=== PATIENT | male | born 1960 | race African-American/Black ===

== ENCOUNTER → 2017-01-16 | Emergency (ER) | payer SELFPAY ==
[~2017-01-16] VITALS: Ht 188 cm; Wt 122.5 kg
[~2017-01-16] MED LIST: ALTEPLASE 100 MG/VIAL (ACTIVASE) IV ONE; DILTIAZEM 25 MG/5 ML INJ (CARDIZEM) VIAL IVP ONE; DILTIAZEM DRIP 100 MG in SODIUM CHLORIDE (ADD-VANTAGE) 100 ML IV SCH; LABETALOL HCL 20 MG/4 ML VIAL ONE
[2017-01-16 17:43] LABS: BASOPHILS % (AUTO) 0 % (0-10); EOSINOPHILS % (AUTO) 0 % (0-10); LYMPHOCYTES # (AUTO) 4.8 X 10^3 (1.0-4.0); LYMPHOCYTES % (AUTO) 63 % (12-44); MEAN CORPUSCULAR HEMOGLOBIN 24 PG (25-34); MEAN CORPUSCULAR HGB CONC 33 G/DL (32-36); MEAN CORPUSCULAR VOLUME 72 FL (80-99); MEAN PLATELET VOLUME 10.8 FL (7.4-10.4); MONOCYTES % (AUTO) 13 % (0-12); NEUTROPHILS # (AUTO) 1.8 X 10^3 (1.8-7.8); NEUTROPHILS % (AUTO) 24 % (42-75); PLATELET COUNT 296 10^3/uL (130-400); RED BLOOD COUNT 5.35 10^6/uL (4.35-5.85); RED CELL DISTRIBUTION WIDTH 16.5 % (10.0-14.5); WHITE BLOOD COUNT 7.7 10^3/uL (4.3-11.0)
--- NOTE | 2017-01-16 17:45 | ED Neurological Problem ---
General Stated Complaint: STROKE LIKE SYMPTOMS Source: patient Exam Limitations: no limitations (JACOBO SONI APRN) History of Present Illness Time seen by provider: 17:44 Initial Comments To ER with strokelike symptoms that began at 515 p.m. ifrah. Girlfriend of 8 years states that they just entered the house and ate dinner. He had been complaining of tingling to the right arm and hand for a few minutes. He went to the bedroom and then she went to check on him only minutes later and he was unable to speak, dropped his cigarettes on the floor and could not pick them up , seemed to have no function of the right arm and was drooling. She states that he is a diabetic but does not take any medications as directed. Primary care is [facility] here in [place]. He does smoke 1-2 packs of cigarettes per day in addition to marijuana. He recently lost his job a [email or web address]. Timing/Duration: 1/2 hour (JACOBO SONI APRN) Associated Symptoms: confusion, slurred speech, weakness (MUNA WRIGHT MD ) Allergies and Home Medications Allergies Coded Allergies: No Known Drug Allergies (Unverified , 01/16/17) Home Medications No Active Prescriptions or Reported Meds Constitutional: see HPI Eyes: No Symptoms Reported Ears, Nose, Mouth, Throat: no symptoms reported Respiratory: no symptoms reported Cardiovascular: no symptoms reported Genitourinary: no symptoms reported Musculoskeletal: see HPI Skin: no symptoms reported Psychiatric/Neurological: See HPI, Unable to Move Upper Ext Endocrine: No Symptoms Reported (JACOBO SONI APRN) Gastrointestinal: No nausea, No vomiting (MUNA WRIGHT MD) All Other Systems Reviewed Negative Unless Noted: Yes (MUNA WRIGHT MD) Past Brtlivd-Svcizj-Qbyhqw Hx Patient Social History Recent Foreign Travel: No Contact w/Someone Who Travel: No (JACOBO SONI APRN) Cardiovascular Hx Cardiac Disorders: Yes Cardiac Disorders: Hypertension (MUNA WRIGHT MD) Endocrine Hx Endocrine Disorders: Yes Endocrine Disorders: Diabetes, Non-Insulin dep (MUNA WRIGHT MD) Physical Exam Vital Signs Vital Sign - Last 12Hours 01/16/17 17:53 Pulse 178 (MUNA WRIGHT MD) Vital Signs Capillary Refill : (SONI,PETER J [employer]) General Appearance: WD/WN, no apparent distress HEENT: PERRL/EOMI, pharynx normal Neck: full range of motion, supple Respiratory: lungs clear, normal breath sounds Cardiovascular: tachycardia, irregularly irregular Peripheral Pulses: 2+ Dorsalis Pedis (R), 2+ Left Dors-Pedis (L), 2+ Radial Pulses (R), 2+ Radial Pulses (L) Gastrointestinal: non tender, soft Extremities: non-tender, other Neurologic/Psychiatric: facial droop (right), motor weakness Crainal Nerves: facial asymmetry, facial droop, other (aphasic) Coordination/Gait: other Motor/Sensory: weak motor strength RUE, weak motor strength RLE Skin: normal color, warm/dry (MUNA WRIGHT MD) Progress/Results/Core Measures Results/Orders Lab Results Laboratory Tests Test 01/16/17 17:37 01/16/17 18:18 Range/Units White Blood Count 7.7 4.3-11.0 10^3/uL Red Blood Count 5.35 4.35-5.85 10^6/uL Hemoglobin 12.6 L 13.3-17.7 G/DL Hematocrit 39 L 40-54 % Mean Corpuscular Volume 72 L 80-99 FL Mean Corpuscular Hemoglobin 24 L 25-34 PG Mean Corpuscular Hemoglobin Concent 33 32-36 G/DL Red Cell Distribution Width 16.5 H 10.0-14.5 % Platelet Count 296 130-400 10^3/uL Mean Platelet Volume 10.8 H 7.4-10.4 FL Neutrophils (%) (Auto) 24 L 42-75 % Lymphocytes (%) (Auto) 63 H 12-44 % Monocytes (%) (Auto) 13 H 0-12 % Eosinophils (%) (Auto) 0 0-10 % Basophils (%) (Auto) 0 0-10 % Neutrophils # (Auto) 1.8 1.8-7.8 X 10^3 Lymphocytes # (Auto) 4.8 H 1.0-4.0 X 10^3 Monocytes # (Auto) 1.0 0.0-1.0 X 10^3 Eosinophils # (Auto) 0.0 0.0-0.3 10^3/uL Basophils # (Auto) 0.0 0.0-0.1 10^3/uL Prothrombin Time 14.4 12.2-14.7 SEC INR Comment 1.2 0.8-1.4 Activated Partial Thromboplast Time 29 24-35 SEC D-Dimer 0.85 H 0.00-0.49 UG/ML Sodium Level 136 135-145 MMOL/L Potassium Level 4.4 3.6-5.0 MMOL/L Chloride Level 103 98-107 MMOL/L Carbon Dioxide Level 22 21-32 MMOL/L Anion Gap 11 5-14 MMOL/L Blood Urea Nitrogen 15 7-18 MG/DL Creatinine 1.28 0.60-1.30 MG/DL Estimat Glomerular Filtration Rate > 60 BUN/Creatinine Ratio 12 Glucose Level 291 H 70-105 MG/DL Glucometer 313 H 70-110 MG/DL Calcium Level 9.6 8.5-10.1 MG/DL Total Bilirubin 0.8 0.1-1.0 MG/DL Aspartate Amino Transf (AST/SGOT) 26 5-34 U/L Alanine Aminotransferase (ALT/SGPT) 37 0-55 U/L Alkaline Phosphatase 109 40-136 U/L Troponin I < 0.30 <0.30 NG/ML Total Protein 9.0 H 6.4-8.2 G/DL Albumin 3.9 3.2-4.5 G/DL (MUNA WRIGHT MD) Medications Given in ED Current Medications Medications Dose Ordered Sig/Ulices Route Start Time Stop Time Status Last Admin Dose Admin Alteplase, Recombinant 100 mg STK-MED ONCE IV 01/16/17 17:57 01/16/17 18:02 DC 01/16/17 18:07 100 MG Diltiazem HCl 10 mg ONCE ONCE IVP 01/16/17 17:45 01/16/17 17:46 DC 01/16/17 17:52 10 MG Labetalol HCl 20 mg STK-MED ONCE .ROUTE 01/16/17 18:08 01/16/17 18:13 DC 01/16/17 18:27 20 MG (MUNA WRIGHT MD) Vital Signs/I&O Vital Sign - Last 12Hours 01/16/17 17:53 Pulse 178 (MUNA WRIGHT MD) Progress Note : Progress Note [id number]- is discussed the case with Dr. Friedman, neurologist at who accepts the patient for transfer and does recommend TPA. We started Cardizem after 10 mg bolus and 10 mg an hour which reduced the heart rate from 170s to 110 and blood pressure from 125/110 to 150s over 100. Neurologic deficits remaining at this time with NIH greater than or equal to 16. Still nonverbal. [facility] [place] [facility] has declined transfer due to weather. [facility] in route for emergent transfer. (JACOBO SONI APRN) Progress Note : Progress Note I had seen and evaluated the patient with Jacobo Soni APRN. Patient has stroke scale greater than 16 but limited due to patient not able to speak. He follow some simple commands but not all which increases his stroke scale as well. Right arm definitely flaccid. Weakness of the right lower extremity but retained strength on right. He appears to nod in understanding to some questions. Patient's blood pressure just above the level required for TPA. Cardizem drip initiated after bolus for A. fib with rapid ventricular response. TPA is indicated. I did discuss the risk and benefits with the common-law who agrees with administration of TPA. Patient is at max dose due to weight. Receives 9 mg bolus and 81 mg over one hour initiated. Patient's blood pressure in the diastolic range near upper level of range for TPA administration. 1830. Blood pressure 134/97 after 20 mg of labetalol. Cardizem drip at 20 mg per hour. He she will go emergent by ground EMS as stated above. All findings, concerns and treatment discussed with family. Patient has 3 IV lines and Mcclelland catheter placed prior to TPA administration. 1850: EMS here switching over for transport currently. Patient's stroke scale now 10. He has improvement with movement of his right arm and right leg. To [facility] emergently. Cardizem drip decreased to 10 mg per hour as blood pressure now one teens over 90s with heart rate 80s to 90s. (MUNA WRIGHT MD) ECG Initial ECG Impression Date: January 16, 2017 Initial ECG Impression Time: 17:51 Initial ECG Rate: 167 Initial ECG Rhythm: A Fib/Flutter Comment Atrial fibrillation with rapid ventricular response. No evidence of ST elevation OR. Normal axis. No previous available for comparison. Interpreted by me. (MUNA WRIGHT MD) Diagnostic Imaging Diagonstic Imaging: CT Plain Films/CT/US/NM/MRI: head Comments VIA [facility]. [place], [place] NAME: MELODY LAMB [facility] REC#: [id number] PT STATUS: REG ER : 10/09/1980 PHYSICIAN: JACOBO SONI APRN ADMIT DATE: 01/16/17/ER Draft Date of Exam:01/16/17 CT HEAD WO-R/O STROKE INDICATION: Right-sided weakness, nonverbal. New onset. TECHNIQUE: Routine head CT was performed without contrast. COMPARISON: None. DISCUSSION: No acute intracranial hemorrhage, mass, midline shift, or hydrocephalus. Arachnoid cyst versus alondra cisterna magna noted incidentally within the posterior fossa. The ventricles and sulci are otherwise normal in size and configuration for age. The visualized orbits, paranasal sinuses, mastoid air cells, and calvarium are unremarkable. IMPRESSION: 1. No acute intracranial abnormality identified. Dictated on workstation # [id number] Dict: 01/16/17 175 Trans: 01/16/171756 AS6 [id number] Interpreted by: ROSY SHERMAN MD Electronically signed by: Date of in error above and is actually 56. Diagonstic Imaging: Xray Plain Films/CT/US/NM/MRI: chest Comments Bilateral pulmonary congestion and/or infiltrate at the bases Reviewed: Reviewed by Me (MUNA WRIGHT MD) Departure Impression Impression: Primary Impression: Cerebrovascular accident due to cerebral artery occlusion Disposition: XFER SHT-TRM HOSP Condition: Critical Transfer Transfer Time: 17:50 Transfer Facility: [place], [place], Dr. Friedman accepting Method of Transfer: EMS (MUNA WRIGHT MD) Departure-Patient Inst. Referrals: [facility] (PCP/Family) Primary Care Physician Scripts No Active Prescriptions or Reported Meds JACOBO SONI APRN January 16, 2017 17:45 MUNA WRIGHT MD January 16, 2017 18:33
--- NOTE | 2017-01-16 17:57 | Diagnostic Imaging Report ---
INDICATION: Right-sided weakness, nonverbal. New onset. TECHNIQUE: Routine head CT was performed without contrast. COMPARISON: None. DISCUSSION: No acute intracranial hemorrhage, mass, midline shift, or hydrocephalus. Arachnoid cyst versus alondra cisterna magna noted incidentally within the posterior fossa. The ventricles and sulci are otherwise normal in size and configuration for age. The visualized orbits, paranasal sinuses, mastoid air cells, and calvarium are unremarkable. IMPRESSION: 1. No acute intracranial abnormality identified. Dictated by: Dictated on workstation # [id number]
[2017-01-16 18:09] LABS: INR 1.2 (0.8-1.4); PROTHROMBIN TIME PATIENT 14.4 SEC (12.2-14.7)
[2017-01-16 18:17] LABS: ALANINE AMINOTRANSFERASE 37 U/L (0-55); ALBUMIN 3.9 G/DL (3.2-4.5); ANION GAP 11 MMOL/L (5-14); ASPARTATE AMINO TRANSFERASE 26 U/L (5-34); BILIRUBIN,TOTAL 0.8 MG/DL (0.1-1.0); BLOOD UREA NITROGEN 15 MG/DL (7-18); BUN/CREATININE RATIO 12; CALCIUM 9.6 MG/DL (8.5-10.1); CARBON DIOXIDE 22 MMOL/L (21-32); CHLORIDE 103 MMOL/L (98-107); CREATININE SERUM 1.28 MG/DL (0.60-1.30); GFR ESTIMATED > 60; GLUCOSE 291 MG/DL (70-105); POTASSIUM 4.4 MMOL/L (3.6-5.0); SODIUM 136 MMOL/L (135-145)
[2017-01-16 18:23] LABS: TROPONIN I < 0.30 NG/ML (<0.30)
[2017-01-16 18:28] LABS: BILIRUBIN,URINE NEGATIVE (NEGATIVE); KETONES,URINE NEGATIVE (NEGATIVE); LEUKOCYTE ESTERASE ,URINE NEGATIVE (NEGATIVE); NITRITE,URINE NEGATIVE (NEGATIVE); PH,URINE 5 (5-9); PROTEIN,URINE 3+ (NEGATIVE); UROBILINOGEN,URINE NORMAL (NORMAL)
[2017-01-16 18:42] VITALS: BP 154/109
--- NOTE | 2017-01-16 18:58 | Diagnostic Imaging Report ---
INDICATION: Dyspnea, altered mental status. DISCUSSION: Single portable upright view of the chest was obtained, no comparison. Borderline cardiomegaly is present. Bilateral mixed interstitial and alveolar opacities are present, pulmonary edema versus pneumonia. No pleural fluid or pneumothorax. No osseous abnormality. IMPRESSION: 1. Mild cardiomegaly with bilateral pulmonary infiltrates. Dictated by: Dictated on workstation # [id number]
== END | disposition short-term general hospital (02) ==
LOC: EDBD 17:34 → ER 17:34
DX: I66.9 Occlusion and stenosis of unspecified cerebral artery (principal); R47.01 Aphasia; I48.2 Chronic atrial fibrillation; R29.898 Other symptoms and signs involving the musculoskeletal system; I10 Essential (primary) hypertension; E11.9 Type 2 diabetes mellitus without complications; F17.210 Nicotine dependence, cigarettes, uncomplicated; F12.90 Cannabis use, unspecified, uncomplicated
CPT/HCPCS: 36415; 51702; 70450; 71010; 80053; 81000; 82962; 84484; 85025; 85379; 85610; 85730; 93005; 93041; 96365; 96368; 96375

== ENCOUNTER 2017-05-24 13:02 | Outpatient (RCR) | payer MEDICAID, OTHER | END 2017-05-26 | disposition home or self-care (01) | PROVIDERS: ATTEND Nurse Practitioner Community Health | DX: I63.512 Cerebral infarction due to unspecified occlusion or stenosis of left middle cerebral artery (principal) ==

== ENCOUNTER 2017-05-24 13:06 | Outpatient (RCR) | payer MEDICAID, OTHER | END 2017-05-26 | disposition home or self-care (01) | PROVIDERS: ATTEND Nurse Practitioner Community Health | DX: I69.320 Aphasia following cerebral infarction (principal) ==

== ENCOUNTER 2017-05-24 13:06 | Outpatient (RCR) | payer MEDICAID, OTHER | END 2017-05-26 | disposition home or self-care (01) | PROVIDERS: ATTEND Nurse Practitioner Community Health | DX: I69.320 Aphasia following cerebral infarction (principal) ==

== ENCOUNTER 2017-06-05 12:53 | Outpatient (RCR) | payer MEDICAID, OTHER ==
[2017-06-15] MEDS ORDERED: MULT-166 PO (12:41)
[2017-06-15] MEDS ORDERED: WARF4TAB70 PO (12:41)
[2017-06-15] MEDS ORDERED: ATOR20TA66 PO (12:41)
[2017-06-15] MEDS ORDERED: FERR-74 PO (12:41)
[2017-06-15] MEDS ORDERED: SITA100T12 PO (12:41)
[2017-06-15] MEDS ORDERED: CARV25TA PO (12:41)
[2017-06-15] MEDS ORDERED: ACET325T38 PO (12:41)
[2017-06-15] MEDS ORDERED: POLY255P PO (12:41)
[2017-06-15] MEDS ORDERED: LEVE10006 PO (12:41)
[2017-06-15] MEDS ORDERED: VENL75CA93 PO (12:41)
[2017-06-15] MEDS ORDERED: MODA200T39 PO (12:41)
[2017-06-15] MEDS ORDERED: FLUO40CA PO (12:41)
[2017-06-15] MEDS ORDERED: METF1000 PO (12:41)
[2017-06-15] MEDS ORDERED: FLUO20CA25 PO (12:41)
[2017-06-15] MEDS ORDERED: ASPI81TA55 PO (12:41)
[2017-06-15] MEDS ORDERED: FAMO20TA5 PO (12:41)
[2017-06-15] MEDS ORDERED: LIDO30JE10 TOP (12:57)
== END 2017-06-22 16:14 | disposition home or self-care (01) ==
PROVIDERS: ATTEND Nurse Practitioner Community Health
DX: I69.320 Aphasia following cerebral infarction (principal)

== ENCOUNTER 2017-06-05 12:53 | Outpatient (RCR) | payer MEDICAID, OTHER ==
[2017-06-15] MEDS ORDERED: ACET325T38 PO (12:41)
[2017-06-15] MEDS ORDERED: SITA100T12 PO (12:41)
[2017-06-15] MEDS ORDERED: CARV25TA PO (12:41)
[2017-06-15] MEDS ORDERED: FERR-74 PO (12:41)
[2017-06-15] MEDS ORDERED: MODA200T39 PO (12:41)
[2017-06-15] MEDS ORDERED: LEVE10006 PO (12:41)
[2017-06-15] MEDS ORDERED: WARF4TAB70 PO (12:41)
[2017-06-15] MEDS ORDERED: FLUO20CA25 PO (12:41)
[2017-06-15] MEDS ORDERED: POLY255P PO (12:41)
[2017-06-15] MEDS ORDERED: MULT-166 PO (12:41)
[2017-06-15] MEDS ORDERED: FLUO40CA PO (12:41)
[2017-06-15] MEDS ORDERED: ASPI81TA55 PO (12:41)
[2017-06-15] MEDS ORDERED: FAMO20TA5 PO (12:41)
[2017-06-15] MEDS ORDERED: ATOR20TA66 PO (12:41)
[2017-06-15] MEDS ORDERED: VENL75CA93 PO (12:41)
[2017-06-15] MEDS ORDERED: METF1000 PO (12:41)
[2017-06-15] MEDS ORDERED: LIDO30JE10 TOP (12:57)
== END 2017-06-15 10:57 | disposition home or self-care (01) ==
PROVIDERS: ATTEND Nurse Practitioner Community Health
DX: I69.320 Aphasia following cerebral infarction (principal)

== ENCOUNTER 2017-06-05 12:53 | Outpatient (RCR) | payer MEDICAID, OTHER ==
[2017-06-15] MEDS ORDERED: ACET325T38 PO (12:41)
[2017-06-15] MEDS ORDERED: FERR-74 PO (12:41)
[2017-06-15] MEDS ORDERED: CARV25TA PO (12:41)
[2017-06-15] MEDS ORDERED: ASPI81TA55 PO (12:41)
[2017-06-15] MEDS ORDERED: VENL75CA93 PO (12:41)
[2017-06-15] MEDS ORDERED: LEVE10006 PO (12:41)
[2017-06-15] MEDS ORDERED: FAMO20TA5 PO (12:41)
[2017-06-15] MEDS ORDERED: FLUO20CA25 PO (12:41)
[2017-06-15] MEDS ORDERED: FLUO40CA PO (12:41)
[2017-06-15] MEDS ORDERED: SITA100T12 PO (12:41)
[2017-06-15] MEDS ORDERED: WARF4TAB70 PO (12:41)
[2017-06-15] MEDS ORDERED: ATOR20TA66 PO (12:41)
[2017-06-15] MEDS ORDERED: MULT-166 PO (12:41)
[2017-06-15] MEDS ORDERED: POLY255P PO (12:41)
[2017-06-15] MEDS ORDERED: METF1000 PO (12:41)
[2017-06-15] MEDS ORDERED: MODA200T39 PO (12:41)
[2017-06-15] MEDS ORDERED: LIDO30JE10 TOP (12:57)
== END 2017-06-14 16:46 | disposition home or self-care (01) ==
PROVIDERS: ATTEND Nurse Practitioner Community Health
DX: I63.512 Cerebral infarction due to unspecified occlusion or stenosis of left middle cerebral artery (principal)

== ENCOUNTER 2017-06-14 17:12 | Inpatient (IN) | payer MEDICAID, OTHER ==
[~2017-06-14] VITALS: Ht 180.3 cm; Wt 83.5 kg
[2017-06-14] MEDS ORDERED: NS IV 1000 ML 1,000 ML IV ONE ×2 (18:45→19:58)
[2017-06-14 18:54] LABS: BASOPHILS % (AUTO) 0 % (0-10); EOSINOPHILS # (AUTO) 0.1 10^3/uL (0.0-0.3); EOSINOPHILS % (AUTO) 1 % (0-10); LYMPHOCYTES # (AUTO) 2.1 X 10^3 (1.0-4.0); LYMPHOCYTES % (AUTO) 24 % (12-44); MEAN CORPUSCULAR HEMOGLOBIN 24 PG (25-34); MEAN CORPUSCULAR HGB CONC 33 G/DL (32-36); MEAN CORPUSCULAR VOLUME 74 FL (80-99); MEAN PLATELET VOLUME 11.5 FL (7.4-10.4); MONOCYTES # (AUTO) 0.8 X 10^3 (0.0-1.0); MONOCYTES % (AUTO) 9 % (0-12); NEUTROPHILS # (AUTO) 5.8 X 10^3 (1.8-7.8); NEUTROPHILS % (AUTO) 66 % (42-75); PLATELET COUNT 337 10^3/uL (130-400); RED BLOOD COUNT 4.54 10^6/uL (4.35-5.85); RED CELL DISTRIBUTION WIDTH 17.5 % (10.0-14.5); WHITE BLOOD COUNT 8.7 10^3/uL (4.3-11.0)
[2017-06-14 19:19] LABS: ALBUMIN 3.8 GM/DL (3.2-4.5); BILIRUBIN,TOTAL 0.4 MG/DL (0.1-1.0); CALCIUM 9.6 MG/DL (8.5-10.1); CREATININE SERUM 5.49 MG/DL (0.60-1.30); TOTAL PROTEIN 8.8 GM/DL (6.4-8.2)
[2017-06-14 19:20] LABS: POTASSIUM 5.6 MMOL/L (3.6-5.0)
--- NOTE | 2017-06-14 20:17 | ED General ---
General Chief Complaint: General Problems/Pain Stated Complaint: DEHYDRATED Nursing Triage Note: PT BROUGHT TO ED BY GIRLFRIEND FROM [facility]. PT HAS HX OF CVA W R SIDED WEAKNESS AND APHAGIA. PT HAS BEEN NOT EATING OR DRINKING WELL AND HAS LOST 8#, PT IS LETHARGIC. MOUTH DRY AT THIS X Nursing Sepsis Screen: No Definite Risk Source of Information: Patient, Family Exam Limitations: Physical Impairments History of Present Illness Time Seen by Provider: 18:44 Initial Comments This 56-year-old gentleman from [facility] presents to the emergency room with concerns for possible dehydration. He had a stroke causing dysphagia and has had intermittent difficulties with eating and drinking. He has suffered one episode of acute renal failure which resolved with IV hydration. He is here with his significant other who provides much of the history. He has been working with speech therapy but still intermittently has problems with consuming enough food and fluids. He also is reluctant to take his medications. She reports he has had a weight loss of 8 pounds in the last week. Patient's CVA was on January 16 and caused speech problems, dysphagia, and right-sided weakness. Patient cannot recall the last time he urinated. Patient has atrial fibrillation and is on warfarin therapy. Allergies and Home Medications Allergies Coded Allergies: No Known Drug Allergies (Unverified , 01/16/17) Home Medications No Active Prescriptions or Reported Meds Constitutional: weakness, weight loss EENTM: see HPI Respiratory: no symptoms reported Cardiovascular: no symptoms reported Gastrointestinal: no symptoms reported Genitourinary: see HPI Musculoskeletal: no symptoms reported Skin: no symptoms reported Psychiatric/Neurological: See HPI Hematologic/Lymphatic: No Symptoms Reported Past Dzltbay-Uofcnm-Kqrris Hx Patient Social History Alcohol Use: Denies Use Recreational Drug Use: No Smoking Status: Former Smoker Type Used: Cigarettes Recent Foreign Travel: No Contact w/Someone Who Travel: No Recent Infectious Disease Expo: No Recent Hopitalizations: Yes Physical Abuse: No Sexual Abuse: No Seasonal Allergies Seasonal Allergies: No Surgeries History of Surgeries: No Respiratory History of Respiratory Disorde: No Cardiovascular History of Cardiac Disorders: Yes Cardiac Disorders: Atrial Fibrillation, High Cholesterol, Hypertension Neurological History of Neurological Disord: Yes Neurological Disorders: Stroke Genitourinary History of Genitourinary Disor: No Gastrointestinal History of Gastrointestinal Di: Yes (dysphasia) Gastrointestinal Disorders: Gastroesophageal Reflux Musculoskeletal History of Musculoskeletal Dis: No Endocrine History of Endocrine Disorders: Yes Endocrine Disorders: Diabetes, Non-Insulin dep HEENT History of HEENT Disorders: No Cancer History of Cancer: No Psychosocial History of Psychiatric Problem: Yes Behavioral Health Disorders: Depression Suicide Risk Score: 0 Integumentary History of Skin or Integumenta: No Physical Exam Vital Signs Vital Sign - Last 12Hours 06/14/17 06/14/17 18:55 21:49 Temp 98.2 Pulse 112 Resp 18 B/P (MAP) 109/82 Pulse Ox 98 O2 Delivery Room Air Capillary Refill : Less Than 3 Seconds General Appearance: No Apparent Distress, WD/WN HEENT: PERRL/EOMI, Normal ENT Inspection, Other (oropharynx very dry) Neck: Normal Inspection Respiratory: Lungs Clear, Normal Breath Sounds, No Accessory Muscle Use, No Respiratory Distress Cardiovascular: No Edema, No Murmur, Irregularly Irregular Gastrointestinal: Normal Bowel Sounds, Non Tender, Soft Extremity: Normal Inspection, No Pedal Edema Neurologic/Psychiatric: Alert, director of personnel II-XII Norm as Tested (expressive aphasia, dysphagia), Motor Weakness (right upper and lower extremity) Skin: Normal Color, Warm/Dry Progress/Results/Core Measures Results/Orders Lab Results Laboratory Tests Test 06/14/17 18:23 06/14/17 18:25 06/15/17 05:22 Range/Units White Blood Count 8.7 10.9 4.3-11.0 10^3/uL Red Blood Count 4.54 3.77 L 4.35-5.85 10^6/uL Hemoglobin 11.0 L 9.0 L 13.3-17.7 G/DL Hematocrit 33 L 28 L 40-54 % Mean Corpuscular Volume 74 L 73 L 80-99 FL Mean Corpuscular Hemoglobin 24 L 24 L 25-34 PG Mean Corpuscular Hemoglobin Concent 33 33 32-36 G/DL Red Cell Distribution Width 17.5 H 17.4 H 10.0-14.5 % Platelet Count 337 252 130-400 10^3/uL Mean Platelet Volume 11.5 H 11.3 H 7.4-10.4 FL Neutrophils (%) (Auto) 66 70 42-75 % Lymphocytes (%) (Auto) 24 13 12-44 % Monocytes (%) (Auto) 9 17 H 0-12 % Eosinophils (%) (Auto) 1 0 0-10 % Basophils (%) (Auto) 0 0 0-10 % Neutrophils # (Auto) 5.8 7.6 1.8-7.8 X 10^3 Lymphocytes # (Auto) 2.1 1.4 1.0-4.0 X 10^3 Monocytes # (Auto) 0.8 1.8 H 0.0-1.0 X 10^3 Eosinophils # (Auto) 0.1 0.0 0.0-0.3 10^3/uL Basophils # (Auto) 0.0 0.0 0.0-0.1 10^3/uL Sodium Level 137 135-145 MMOL/L Potassium Level 5.6 H 3.6-5.0 MMOL/L Chloride Level 108 H 98-107 MMOL/L Carbon Dioxide Level 10 L 21-32 MMOL/L Anion Gap 19 H 5-14 MMOL/L Blood Urea Nitrogen 44 H 7-18 MG/DL Creatinine 5.49 H 0.60-1.30 MG/DL Estimat Glomerular Filtration Rate 13 BUN/Creatinine Ratio 8 Glucose Level 122 H 70-105 MG/DL Calcium Level 9.6 8.5-10.1 MG/DL Total Bilirubin 0.4 0.1-1.0 MG/DL Aspartate Amino Transf (AST/SGOT) 20 5-34 U/L Alanine Aminotransferase (ALT/SGPT) 11 0-55 U/L Alkaline Phosphatase 76 40-136 U/L Total Protein 8.8 H 6.4-8.2 GM/DL Albumin 3.8 3.2-4.5 GM/DL Prothrombin Time 82.7 *H 12.2-14.7 SEC INR Comment 10.8 *H 0.8-1.4 My Orders Orders - BRENNEN MORALES MD Saline Lock/Iv-Start (06/14/17 18:44) Cbc With Automated Diff (06/14/17 18:44) Comprehensive Metabolic Panel (06/14/17 18:44) Ua Culture If Indicated (06/14/17 18:44) Ns Iv 1000 Ml (Sodium Chloride 0.9%) (06/14/17 18:45) Ns Iv 1000 Ml (Sodium Chloride 0.9%) (06/14/17 19:58) Protime With Inr (06/14/17 20:09) Medications Given in ED Current Medications Medications Dose Ordered Sig/Ulices Route Start Time Stop Time Status Last Admin Dose Admin Sodium Chloride 1,000 ml @ 0 mls/hr Q0M ONCE IV 06/14/17 18:45 06/14/17 18:46 DC 06/14/17 18:51 1,000 MLS/HR Sodium Chloride 1,000 ml @ 0 mls/hr Q0M ONCE IV 06/14/17 19:58 06/14/17 19:59 DC 06/14/17 20:44 1,000 MLS/HR Vital Signs/I&O Vital Sign - Last 12Hours 06/14/17 06/14/17 06/14/17 06/14/17 18:55 21:49 21:54 21:54 Temp 98.2 97.7 Pulse 112 107 100 Resp 18 20 20 B/P (MAP) 109/82 122/75 Pulse Ox 98 98 98 O2 Delivery Room Air Room Air Room Air 06/15/17 06/15/17 06/15/17 06/15/17 00:35 01:00 02:20 04:49 Temp 98.2 97.5 98.0 Pulse 102 105 101 100 Resp 18 20 20 B/P (MAP) 131/68 131/78 130/79 Pulse Ox 99 98 99 O2 Delivery Room Air Room Air Room Air Blood Pressure Mean: 91 Progress Note : Progress Note Patient was found to be in severe renal failure. He was aggressively hydrated with 2 L of IV fluids in the emergency room. Renal failure was significant enough to consider transfer to a facility with nephrology. Case was discussed with Dr. Taylor to preferred transfer. However, the patient's significant other who is the decision maker for him stated she preferred to try IV hydration at this facility first as she works in [place] and will have trouble traveling to [place]. She is his caregiver and important part of the healthcare communication. She also comments that his prior episode of renal failure was rapidly resolved with IV fluids. She believes his creatinine was greater than 4 at that time. Patient was also found to have an extremely supratherapeutic INR of 10.8. This was discussed with Dr. Taylor. Patient had no active bleeding during his ER stay. We anticipate his INR will improve with hydration. She preferred no vitamin K be administered at this time unless active bleeding develops. Patient's significant other was asked about PEG tube. Although he has had intermittent difficulty with dysphagia, PEG tube has not yet been considered and they have not had consultation with a surgeon. Departure Communication (Admissions) Time/Spoke to Admitting Phy: 20:[address] Taylor Impression Impression: Primary Impression: Acute renal failure Qualified Codes: N17.9 - Acute kidney failure, unspecified Additional Impressions: Severe dehydration Hyperkalemia Supratherapeutic INR Disposition: ADMITTED INPATIENT Condition: Improved Admissions Decision to Admit Reason: Admit from ER (General) Decision to Admit/Date: Jun 14, 2017 Time/Decision to Admit Time: 20:35 Departure-Patient Inst. Referrals: [facility] (PCP) Primary Care Physician ERNESTO MEJIA (Family) Primary Care Physician Scripts No Active Prescriptions or Reported Meds BRENNEN MORALES MD Jun 14, 2017 20:17
[2017-06-14 20:29] LABS: PROTHROMBIN TIME PATIENT 82.7 SEC (12.2-14.7)
[2017-06-14 20:30] LABS: INR 10.8 (0.8-1.4)
[2017-06-14 21:54] VITALS: BP 122/75
[2017-06-14] MEDS ORDERED: NS IV 1000 ML 1,000 ML IV SCH (22:15)
[2017-06-15] VITALS (8 sets, daily range): BP systolic 128–148; BP diastolic 63–89
[2017-06-15] MEDS: NS IV 1000 ML 1,000 ML IV SCH ×3 (04:02→15:41)
[2017-06-15 05:34] LABS: BASOPHILS % (AUTO) 0 % (0-10); EOSINOPHILS % (AUTO) 0 % (0-10); LYMPHOCYTES # (AUTO) 1.4 X 10^3 (1.0-4.0); LYMPHOCYTES % (AUTO) 13 % (12-44); MEAN CORPUSCULAR HEMOGLOBIN 24 PG (25-34); MEAN CORPUSCULAR HGB CONC 33 G/DL (32-36); MEAN CORPUSCULAR VOLUME 73 FL (80-99); MEAN PLATELET VOLUME 11.3 FL (7.4-10.4); MONOCYTES # (AUTO) 1.8 X 10^3 (0.0-1.0); MONOCYTES % (AUTO) 17 % (0-12); NEUTROPHILS # (AUTO) 7.6 X 10^3 (1.8-7.8); NEUTROPHILS % (AUTO) 70 % (42-75); PLATELET COUNT 252 10^3/uL (130-400); RED BLOOD COUNT 3.77 10^6/uL (4.35-5.85); RED CELL DISTRIBUTION WIDTH 17.4 % (10.0-14.5); WHITE BLOOD COUNT 10.9 10^3/uL (4.3-11.0)
[2017-06-15] MEDS ORDERED: INFLUENZA TRIvalent 2017-2018 0.5 ML/45 MCG SYR IM ONE (07:00)
[2017-06-15 07:06] LABS: ALBUMIN 3.4 GM/DL (3.2-4.5); BILIRUBIN,TOTAL 0.4 MG/DL (0.1-1.0); CALCIUM 8.6 MG/DL (8.5-10.1); CREATININE SERUM 5.97 MG/DL (0.60-1.30); POTASSIUM 5.2 MMOL/L (3.6-5.0); TOTAL PROTEIN 7.4 GM/DL (6.4-8.2)
[2017-06-15 07:09] LABS: PROTHROMBIN TIME PATIENT > 100.0 SEC (12.2-14.7)
--- NOTE | 2017-06-15 10:18 | History & Physicial (CHS) ---
HPI History of Present Illness: Patient presented in the ER via EMS from via [facility] for possible dehydration. History is limited due to aphasia from a stroke in December. Much of the hx was obtained from ER records. Patient has had significant dysphagia since the stroke and has had difficulty eating and drinking. Patient has lost 8 pounds in the last week. Patient denies abdominal pain. Denies fever. Source: old records, other (Girlfriend) Exam Limitations: physical impairment Date seen by provider: Jun 15, 2017 Time Seen by Provider: 09:45 Attending Physician Emily Taylor MD PCP [place],[facility] Date of Admission Jun 14, 2017 at 21:25 Home Medications Home Medications Reviewed patient Home Medication Reconciliation Form Allergies Coded Allergies: No Known Drug Allergies (Unverified , 01/16/17) GWA-Titjgy-Ursfpy Hx Patient Social History Alcohol Use: Denies Use Recreational Drug Use: No Smoking Status: Smoker Current Status [facility] Type Used: Cigarettes Recent Foreign Travel: No Contact w/other who traveled: No Recent Hopitalizations: Yes Recent Infectious Disease Expo: No Physical Abuse Screen: No Sexual Abuse: No Review of Systems ([facility]) Constitutional: No fever, weight loss EENTM: no symptoms reported Respiratory: no symptoms reported Cardiovascular: no symptoms reported Gastrointestinal: no symptoms reported, No abdominal pain Genitourinary: decreased output Musculoskeletal: no symptoms reported Skin: dryness Psychiatric/Neurological: Depressed Physical Exam-([facility]) Physical Exam Vital Signs VS - Last 72 Hours, by Label 06/14/17 06/14/17 06/14/17 06/14/17 18:55 21:49 21:54 21:54 Temp 98.2 97.7 Pulse 112 107 100 Resp 20 B/P (MAP) 109/82 122/75 Pulse Ox 98 98 98 O2 Delivery Room Air Room Air Room Air 06/15/17 06/15/17 06/15/17 06/15/17 00:35 01:00 02:20 04:49 Temp 98.2 97.5 98.0 Pulse 102 105 101 100 Resp 18 20 20 B/P (MAP) 131/68 131/78 130/79 Pulse Ox 99 98 99 O2 Delivery Room Air Room Air Room Air 06/15/17 06/15/17 06:16 08:00 Temp 97.4 97.4 Pulse 99 101 Resp 20 20 B/P (MAP) 133/78 128/63 Pulse Ox 100 98 O2 Delivery Room Air Room Air Capillary Refill : Less Than 3 Seconds General Appearance: no apparent distress Neck: non-tender, supple Respiratory: lungs clear, no respiratory distress, no accessory muscle use Cardiovascular: regular rate, rhythm, no murmur Gastrointestinal: normal bowel sounds, non tender Extremities: normal inspection, no pedal edema Neurologic/Psychiatric: aphasia, depressed affect Skin: cool (Dry) Lymphatic: no adenopathy Clinical Quality Measures DVT/VTE Risk/Contraindication: Risk Factor Score Per Nursin RFS Level Per Nursing on Admit: 4+=Very High Assessment/Plan Assessment/Plan Admission Dx Severe Dehydration, ARF, Hyperkalemia Plan 56 yo Male with Hx of CVA. Acute renal failure Severe Dehydration Hyperkalemia Patient is being transferred to [place] in [place] [employer] STUDENT Jun 15, 2017 10:18
[2017-06-15 10:50] LABS: ALBUMIN 3.4 GM/DL (3.2-4.5); BILIRUBIN,TOTAL 0.4 MG/DL (0.1-1.0); CALCIUM 8.6 MG/DL (8.5-10.1); CREATININE SERUM 6.26 MG/DL (0.60-1.30); POTASSIUM 5.1 MMOL/L (3.6-5.0); TOTAL PROTEIN 7.6 GM/DL (6.4-8.2)
[2017-06-15 10:53] LABS: PROTHROMBIN TIME PATIENT > 100.0 SEC (12.2-14.7)
[2017-06-15] MEDS ORDERED: PHYTONADIONE (ADULT) INJECTION 10 MG in NS (IVPB) 50 ML IV NR (11:00)
--- NOTE | 2017-06-15 11:34 | ST Dysphagia Evaluation ---
Speech Evaluation-General Medical Diagnosis Dehydration, Acute Renal Failure Onset Date: Jun 14, 2017 Therapy Diagnosis Therapy Diagnosis: Odynophagia Precautions Precautions: Aspiration Precautions/Isolations: Fall Prevention, Standard Precautions Referral Referring Physician: Dr. 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 The patient is currently residing at [facility]. Current History The patient was admitted to [facility] on 06/14/2017 with a diagnosis of acute renal failure. Speech PLF/Current-Dysphagia Prior Level of Function Prior to the evaluation and hospitalization, the patient was consuming a regular diet with thin liquids. Per chart review, the patient has reduced his PO intake over the past week which has resulted in an eight pound weight loss. The patient does display severe global aphasia, therefore, is unable to provide past medical history to the clinician. Subjective The patient was laying in bed, awake upon entrance. The patient made eye contact with the clinician and was positioned upright in bed for the swallowing evaluation. CXR: 06/14/2017: Mild cardiomegaly with bilateral pulmonary infiltrates. Cognitive Status Patient Orientation: Non-Verbal/Aphasic Oral Motor Skills Dentition: Natural (Poor condition, missing dentition.) Ability to Follow Directions: Poor Oral Expression Ability: Severe Impairment The patient is NPO pending the swallow evaluation. Face Facial Symmetry: Asymmetrical (Right facial droop present at rest.) Oral-Facial Assessment Oral-Facial Dentition: Normal Labial Seal Description: Droops Right Smile: Droops Right Puff Cheeks: Reduced Strength (Right) Lingual Protrusion: Abnormal (Slight, right lingual deviation upon protrusion.) Lingual ROM: Normal Lingual Strength: Normal Pharynx Velopharyngeal Move.: Normal Volitional Dry Swallow: Yes (The patient grimaced following a dry swallow.) Dysphagia Evaluation Consistencies Presented: Regular, Thin Liquid, Pureed Oral Phase: Absent Oral Transit The patient orally held the applesauce, as well as, the minimally masticated saltine cracker. The patient requested to expectorate the consistencies into a napkin. The patient did not elicit a swallow with puree or solid consistencies tested. The patient orally held the thin liquid (teaspoon) for eight seconds prior to triggering a pharyngeal swallow. Pharyngeal Phase: Delayed Swallow Thin Liquid (via teaspoon): No signs/symptoms of aspiration were demonstrated with thin liquids via teaspoon. The patient did grimace following the swallow. The patient reported discomfort and pain upon swallowing. Puree/Cracker: The patient expectorated the puree and solid consistency into a napkin. No swallow was initiated. The cracker was slightly blood-tinged. The patient refused additional trials. Due to the limited participation, the clinician is unable to make a safe recommendation for PO. Dietary Recommendations: NPO Liquid Recommendations: Thin (By Teaspoon) As the patient consumed multiple thin liquid trials by teaspoon, the clinician is only able to recommend this consistency safely. As the patient displayed and reported signs of significant odynophagia, this clinician recommends pharyngeal examination by physician or talent acquisition assistant. The above information and recommendations were shared with the patient's RN. Swallowing Precautions: Decreased Bolus 1/2 Tsp, Liquids from Spoon, Sitting Upright 90 Degrees Dysphagia Evaluation Summary Moderate Odynophagia Speech Short Term Goals Short Term Goals Short Term Goals 1. The patient will complete a full bedside swallowing evaluation. Time Frame-STG: Three Days Speech Cd Mixer Goals Custodial Goals 1. The patient will consume the least restrictive diet without signs/symptoms of aspiration or laryngeal penetration. Time Frame: One Week Speech-Plan Treatment Plan Speech Therapy Treatment Plan: Continue Plan of Care Continue skilled speech pathology services to target safe swallowing recommendations. Treatment Duration: Jun 22, 2017 Frequency: 3 times per week Estimated Hrs Per Day: .25 hour per day Rehab Potential: Guarded Safety Risks/Education Teaching Recipient: Patient Teaching Methods: Discussion Response to Teaching: Unable to Comprehend Education Topics Provided: Results, Recommendations, Plan of Care Time Speech Therapy Time In: 10:25 Speech Therapy Time Out: 10:40 Total Billed Time: 15 Billed Treatment Time 1BRYNNGARETH Matute Jun 15, 2017 11:34
[2017-06-15] MEDS ORDERED: MULT-166 PO (12:41)
[2017-06-15] MEDS ORDERED: FLUO40CA PO (12:41)
[2017-06-15] MEDS ORDERED: ATOR20TA66 PO (12:41)
[2017-06-15] MEDS ORDERED: POLY255P PO (12:41)
[2017-06-15] MEDS ORDERED: FERR-74 PO (12:41)
[2017-06-15] MEDS ORDERED: WARF4TAB70 PO (12:41)
[2017-06-15] MEDS ORDERED: SITA100T12 PO (12:41)
[2017-06-15] MEDS ORDERED: LEVE10006 PO (12:41)
[2017-06-15] MEDS ORDERED: ASPI81TA55 PO (12:41)
[2017-06-15] MEDS ORDERED: VENL75CA93 PO (12:41)
[2017-06-15] MEDS ORDERED: CARV25TA PO (12:41)
[2017-06-15] MEDS ORDERED: METF1000 PO (12:41)
[2017-06-15] MEDS ORDERED: FLUO20CA25 PO (12:41)
[2017-06-15] MEDS ORDERED: MODA200T39 PO (12:41)
[2017-06-15] MEDS ORDERED: FAMO20TA5 PO (12:41)
[2017-06-15] MEDS ORDERED: ACET325T38 PO (12:41)
[2017-06-15] MEDS ORDERED: LIDO30JE10 TOP (12:57)
== END 2017-06-15 16:15 | disposition short-term general hospital (02) | DRG 683 ==
LOC: EDUNIT# 17:12 → ER 17:13 → 4TH 21:25
PROVIDERS: ADMIT Family Medicine; ATTEND Family Medicine
DX: N17.9 Acute kidney failure, unspecified (principal); E86.0 Dehydration; E87.5 Hyperkalemia; R79.1 Abnormal coagulation profile; I69.351 Hemiplegia and hemiparesis following cerebral infarction affecting right dominant side; I69.391 Dysphagia following cerebral infarction; I69.320 Aphasia following cerebral infarction; I48.91 Unspecified atrial fibrillation; I10 Essential (primary) hypertension; E78.00 Pure hypercholesterolemia, unspecified; K21.9 Gastro-esophageal reflux disease without esophagitis; E11.9 Type 2 diabetes mellitus without complications; F32.9 Major depressive disorder, single episode, unspecified; Z79.01 Long term (current) use of anticoagulants; Z87.891 Personal history of nicotine dependence
CPT/HCPCS: 36415; 80053; 85025; 85610; 96360; 96361

== ENCOUNTER → 2017-08-14 | Outpatient (CLI) | payer MEDICAID ==
[~2017-08-14] MED LIST changes: +ACET325T38 PO; -ALTEPLASE 100 MG/VIAL (ACTIVASE) IV ONE; +ASPI81TA55 PO; +ATOR20TA66 PO; +CARV25TA PO; -DILTIAZEM 25 MG/5 ML INJ (CARDIZEM) VIAL IVP ONE; -DILTIAZEM DRIP 100 MG in SODIUM CHLORIDE (ADD-VANTAGE) 100 ML IV SCH; +FAMO20TA5 PO; +FERR-74 PO; +FLUO20CA25 PO; +FLUO40CA PO; -LABETALOL HCL 20 MG/4 ML VIAL ONE; +LEVE10006 PO; +LIDO30JE10 TOP; +METF1000 PO; +MODA200T39 PO; +MULT-166 PO; +POLY255P PO; +SITA100T12 PO; +VENL75CA93 PO; +WARF4TAB70 PO
== END ==
LOC: CARD 10:37
PROVIDERS: ATTEND Internal Medicine Interventional Cardiology
DX: I48.91 Unspecified atrial fibrillation (principal); E11.9 Type 2 diabetes mellitus without complications; E78.5 Hyperlipidemia, unspecified; I10 Essential (primary) hypertension
CPT/HCPCS: 93306

== ENCOUNTER → 2017-09-06 | Outpatient (CLI) | payer MEDICAID ==
[~2017-09-06] VITALS: Ht 193 cm; Wt 96.2 kg
[~2017-09-06] MED LIST changes: +CATHETER FLUSH 10 ML SYR IV PRN; -FERR-74 PO; +FERR325T18 PO; +REGADENOSON 0.4 MG/5 ML SYR (LEXISCAN) IV ONE
[2017-09-06 09:32] LABS: ALBUMIN 3.6 GM/DL (3.2-4.5); BUN/CREATININE RATIO 10; CALCIUM 8.8 MG/DL (8.5-10.1); CARBON DIOXIDE 26 MMOL/L (21-32); CHLORIDE 107 MMOL/L (98-107); CREATININE SERUM 1.06 MG/DL (0.60-1.30); GFR ESTIMATED > 60; GLUCOSE 99 MG/DL (70-105); PHOSPHORUS 3.9 MG/DL (2.3-4.7); POTASSIUM 3.6 MMOL/L (3.6-5.0); SODIUM 141 MMOL/L (135-145)
[2017-09-06 10:01] VITALS: BP 179/98
--- NOTE | 2017-09-06 21:54 | STRESS TEST ---
DATE OF SERVICE: 09/06/2017 PHARMACOLOGICAL NUCLEAR STRESS PRIMARY PHYSICIAN: Kristen Jacobsen. ATTENDING PHYSICIAN: Dr. Immanuel Armenta. INDICATION: Atrial fibrillation, diabetes. PROCEDURE DETAILS: The patient was brought to the cathode builder after informed consent was taken. Stress test was performed according to the Lexiscan protocol. A 0.4 mg of IV Lexiscan was given intravenously. Baseline EKG showed atrial fibrillation at 80 BPM. Maximum heart rate was 107 BPM. Blood pressure was 156/96 mmHg. Maximum blood pressure was 179/98 mmHg. There were no EKG changes noted. A 10.16 mCi of Myoview were given for rest imaging and 30.8 mCi of Myoview were given for stress imaging. TID 1.02. EF 48%. Normal perfusion and normal wall motion. CONCLUSION: 1. Pharmacological stress test was negative for ischemia. 2. Normal LV function with no wall motion abnormalities. 3. There is no perfusion defects noted. Job ID: [id number] DocumentID: [id number] Dictated Date: 09/06/2017 15:05:20 [employer] Server Date: 09/06/2017 18:02:44 Dictated By: ROSALINE ARMENTA MD
== END ==
LOC: CARD 08:50
PROVIDERS: ATTEND Internal Medicine Interventional Cardiology
DX: N17.9 Acute kidney failure, unspecified (principal); E11.9 Type 2 diabetes mellitus without complications; I48.91 Unspecified atrial fibrillation; E78.5 Hyperlipidemia, unspecified; I10 Essential (primary) hypertension
CPT/HCPCS: 36415; 78452; 80069; 93017

== ENCOUNTER 2017-09-20 08:23 | Day surgery (SDC) | payer MEDICAID ==
[~2017-09-20] VITALS: Ht 193 cm; Wt 96.2 kg
[2017-09-20] VITALS (19 sets, daily range): BP systolic 139–175; BP diastolic 91–115
[~2017-09-20 08:23] MED LIST changes: -CATHETER FLUSH 10 ML SYR IV PRN; -REGADENOSON 0.4 MG/5 ML SYR (LEXISCAN) IV ONE
[2017-09-20] MEDS ORDERED: LIDOCAINE 2% VISCOUS 15 ML UDC ONE (08:30)
[2017-09-20] MEDS ORDERED: NS IV 1000 ML 1,000 ML ONE (08:30)
[2017-09-20] MEDS ORDERED: proPOfol 200 MG/20 ML (DIPRIVAN) VIAL IV ONE (09:09)
[2017-09-20] MEDS ORDERED: MIDAZOLAM 5 MG/5 ML (VERSED) VIAL ONE (09:10)
--- NOTE | 2017-09-20 11:00 | Progress Note-Standard ---
Standard Progress Note Progress Notes/Assess & Plan Time Seen by Provider: 09:50 Final Diagnosis Consulted for sedation during AMARILYS/Cardioversion. Pt sedate upon arrival. Report from RN. Propofol 150 mg IV total. VSS, pt anabela well. Report to RN care assumed. DEXTER PARIKH CRNA Sep 20, 2017 11:00
[2017-09-20] MEDS ORDERED: ERGO50006 PO (11:31)
[2017-09-20] MEDS ORDERED: IBUP-30 PO (11:31)
[2017-09-20] MEDS ORDERED: APIX5TAB PO (11:31)
[2017-09-20] MEDS ORDERED: DILT60TA PO (11:31)
[2017-09-20] MEDS ORDERED: LIDOCAINE 2% GEL TOP (11:31)
[2017-09-20] MEDS ORDERED: AMIO200T2 PO (11:31)
[2017-09-20] MEDS ORDERED: INSU100V SQ (11:31)
[2017-09-20] MEDS ORDERED: LEVE500T6 PO (11:31)
[2017-09-20] MEDS ORDERED: PANT40TA2 PO (11:31)
[2017-09-20] MEDS ORDERED: MENT118G TP (11:31)
--- NOTE | 2017-09-20 11:45 | Cardiology Post Procedure Note ---
Post-Procedure Note Physician (s)/Stars Specialist (s) Physician Kimberly MILLER MD Pre-Procedure Diagnosis Pre-Procedure Diagnosis: atrial fibrillation Post-Procedure Note Procedure Start Date: Sep 20, 2017 Procedure Start Time: 09:30 Name of Procedure: Trans esophageal echocardiogram assisted cardioversion Findings/Procedure Note Successful cardioversion with a single synchronized 200 J shock. Estimated blood loss (mL): none Contrast Amount: none Post-Procedure Diagnosis Post-operative diagnosis: Successful cardioversion to sinus rhythm. Kimberly MILLER MD Sep 20, 2017 11:45 am
--- NOTE | 2017-09-20 11:54 | Cardioversion ---
Cardioversion PROCEDURE PHYSICIAN: Immanuel Armenta MD DATE OF PROCEDURE: 09/20/17 DIRECT EXTERNAL ELECTRICAL CARDIOVERSION: Indications: Atrial Fibrillation with controlled ventricular rate Preoperative diagnoses: Atrial Fibrillation with an trolled ventricular rate Postoperative diagnosis: Sinus rhythm, Successful Electrical Cardioversion History: This is a 56-year-old gentleman with previous history of stroke and atrial fibrillation. Rhythm control is a strategy for atrial fibrillation that we will be pursuing. Transesophageal echocardiogram assisted cardioversion is recommended. Anesthesia: By Anesthesia services Complications: None Specimen: None Contrast: 0 Flouroscopy: none Procedure Details: The patient was brought the molder labels after informed consent was taken, all the risks and complications were explained including the risk of stroke. Transesophageal echocardiogram did not show any left atrial or left atrial appendage thrombus. Electrical cardioversion was carried out with anesthesia support with propofol. 200 joules of synchronized shock was delivered through external patches which promptly restored sinus rhythm. The patient tolerated the procedure well. Conclusions: 1.Successful Cardioversion. 2.Continue oral anticoagulation and rate controlling agent. 3.Follow up in office in 7 days. Immanuel Armenta MD, RS, CCDS Cardiac Electrophysiology Kimberly ARMENTA MD Sep 20, 2017 11:54 am
== END 2017-09-20 13:00 | disposition home or self-care (01) ==
LOC: CATH 08:23 → SURG 10:42 → CATH 13:00
PROVIDERS: ATTEND Internal Medicine Interventional Cardiology
DX: I48.91 Unspecified atrial fibrillation (principal); I10 Essential (primary) hypertension; E11.9 Type 2 diabetes mellitus without complications; E78.5 Hyperlipidemia, unspecified; I69.351 Hemiplegia and hemiparesis following cerebral infarction affecting right dominant side; I73.9 Peripheral vascular disease, unspecified; Z87.891 Personal history of nicotine dependence; Z79.01 Long term (current) use of anticoagulants; Z79.4 Long term (current) use of insulin; Z79.899 Other long term (current) drug therapy
CPT/HCPCS: 92960; 93005; 93320; 93325

== ENCOUNTER → 2017-10-13 | Outpatient (CLI) | payer MEDICAID ==
[~2017-10-13] MED LIST changes: +AMIO200T2 PO; +APIX5TAB PO; +DILT60TA PO; +ERGO50006 PO; +IBUP-30 PO; +INSU100V SQ; +LEVE500T6 PO; +LIDOCAINE 2% GEL TOP; +MENT118G TP; +PANT40TA2 PO
[2017-10-13 14:49] LABS: BILIRUBIN,URINE NEGATIVE (NEGATIVE); CLARITY,URINE CLEAR; COLOR,URINE YELLOW; GLUCOSE, URINE (UA) NEGATIVE (NEGATIVE); KETONES,URINE NEGATIVE (NEGATIVE); LEUKOCYTE ESTERASE ,URINE NEGATIVE (NEGATIVE); NITRITE,URINE NEGATIVE (NEGATIVE); PH,URINE 7 (5-9); PROTEIN,URINE NEGATIVE (NEGATIVE); UROBILINOGEN,URINE NORMAL (NORMAL)
[2017-10-13 14:58] LABS: BACTERIA,URINE NEGATIVE /HPF; CALCIUM OXALATE CRYSTALS,UR MODERATE /LPF
== END ==
LOC: CVS 14:45
PROVIDERS: ATTEND Internal Medicine
DX: N18.9 Chronic kidney disease, unspecified (principal)
CPT/HCPCS: 81000

== ENCOUNTER 2018-01-14 16:07 | Emergency (ER) | payer MEDICAID ==
[~2018-01-14] VITALS: Ht 188 cm; Wt 99.8 kg
[~2018-01-14 16:07] MED LIST changes: -LIDO30JE10 TOP; +LIDO30JE3 TOP; -METF1000 PO; +METF10002 PO
[2018-01-14] MEDS ORDERED: NS IV 500 ML 500 ML IV ONE (16:16)
--- NOTE | 2018-01-14 16:23 | ED Fall/Injury ---
General Stated Complaint: FALL;R WRIST AND SHOULDER PAIN Source: patient, EMS, other (gf) Exam Limitations: no limitations History of Present Illness Date Seen by Provider: January 14, 2018 Time Seen by Provider: 16:15 Initial Comments The patient presents to the ER by EMS from home where his home health nurse was going to visit him and when she opened the door she found him laying alongside his bed between the bedroom and the living room. He had is right arm cockup behind him. He has a history of a stroke from years ago that has left him with some right-sided weakness and vocal deficits. Patient also has a history of seizures for which he recently had his Keppra increased from 1300 mg twice a day to 1500 mg but they have not actually started that dose yet. The patient says he did not lose consciousness, have a seizure and he does not think he had a stroke because he does not have any new deficits. The girlfriend says his voice and face are as good as they've ever been. EMS reports last known well time of 1400. Blood glucose of 149. The patient denies cough, shortness of breath, dysuria, nausea, fevers, chills, chest pain. He is having some pain and a little deformity in his right shoulder as well as his right wrist. He has not had anything for pain yet. He is on Eliquis. Allergies and Home Medications Allergies Coded Allergies: No Known Drug Allergies (Unverified , 01/16/17) Home Medications Acetaminophen 325 Mg Tablet, 650 MG PO Q4H PRN for PAIN-MILD, (Reported) TAKES 2 (325MG) TABLETS Amiodarone HCl 200 Mg Tablet, 200 MG PO DAILY, (Reported) Apixaban 5 Mg Tablet, 5 MG PO BID, (Reported) Atorvastatin Calcium 20 Mg Tablet, 20 MG PO HS, (Reported) Carvedilol 25 Mg Tablet, 25 MG PO BID, (Reported) Diltiazem HCl 60 Mg Tablet, 60 MG PO BID, (Reported) Ergocalciferol (Vitamin D2) 50,000 Unit Capsule, 50,000 UNIT PO WEEK, (Reported) Famotidine 20 Mg Tablet, 20 MG PO BID, (Reported) Ferrous Sulfate 325 Mg Tablet, 325 MG PO DAILY, (Reported) Fluoxetine HCl 40 Mg Capsule, 40 MG PO DAILY, (Reported) Ibuprofen 200 Mg Tablet, 600 MG PO Q6H PRN for FEVER, (Reported) Insulin Lispro 100 Unit/1 Ml Vial, SQ QID, (Reported) 151-199 = 1 UNIT 200-249 = 2 UNITS 250-299 = 3 UNITS 300-349 = 4 UNITS 350- 399 = 5 UNITS NOTIFY PHYSICIAN IF BS OVER 400 Levetiracetam 500 Mg Tablet, 1,250 MG PO BID, (Reported) Menthol 118 Ml Gel..ml., TP TID PRN for PAIN, (Reported) Multivitamin with Minerals 1 Each Tablet, 1 TAB PO DAILY, (Reported) Pantoprazole Sodium 40 Mg Tablet.dr, 40 MG PO DAILY, (Reported) Polyethylene Glycol 3350 255 Gm Powder, 17 GM PO DAILY PRN for CONSTIPATION-2ND LINE, (Reported) Sitagliptin Phosphate 100 Mg Tablet, 100 MG PO DAILY, (Reported) [Lidocaine 2% Gel] , TOP PRN PRN for PAIN, (Reported) Patient Home Medication List Home Medication List Reviewed: Yes Review of Systems Constitutional: No chills, No diaphoresis, No malaise; weakness (chronic) Eyes: Denies Blindness, Denies Blurred Vision, Denies Drainage Ears, Nose, Mouth, Throat: denies ear pain, denies ear discharge Respiratory: No cough, No phlegm, No short of breath, No wheezing Cardiovascular: No chest pain, No palpitations, No syncope Gastrointestinal: No abdominal pain, No constipation, No diarrhea, No nausea Genitourinary: No dysuria Musculoskeletal: No back pain; joint pain (right shoulder and wrist) Skin: No pruritus, No rash Psychiatric/Neurological: Denies Headache, Denies Numbness Past Pmxhubm-Qkshho-Fmoiif Hx Patient Social History Alcohol Use: Denies Use Smoking Status: Former Smoker Type Used: Cigarettes Former Smoker, Quit: January 16, 2017 Recent Foreign Travel: No Contact w/Someone Who Travel: No Recent Hopitalizations: Yes Immunizations Up To Date Date of Pneumonia Vaccine: May 09, 2017 Date of Influenza Vaccine: May 09, 2017 Seasonal Allergies Seasonal Allergies: No Past Medical History Surgeries: No Respiratory: No Currently Using CPAP: No Currently Using BIPAP: No Cardiac: Yes Atrial Fibrillation, High Cholesterol, Hypertension Neurological: Yes Stroke Sexually Transmitted Disease: No HIV/AIDS: No Genitourinary: No Gastrointestinal: Yes (dysphasia) Gastroesophageal Reflux Musculoskeletal: Yes (right-sided weakness -CVA) Endocrine: No Diabetes, Non-Insulin dep HEENT: No Cancer: No Did You Recieve Any Treatments: No Psychosocial: Yes Depression Integumentary: No Physical Exam Vital Signs Vital Signs - First Documented 01/14/18 16:46 Temp 97.9 Pulse 62 Resp 18 B/P (MAP) 132/87 (102) Pulse Ox 98 Capillary Refill : General Appearance: WD/WN, no apparent distress HEENT: PERRL/EOMI, normal ENT inspection, pharynx normal Neck: supple, normal inspection, tender lateral (right) Cardiovascular: normal peripheral pulses, regular rate, rhythm, no edema, no murmur Respiratory: chest non-tender, lungs clear, normal breath sounds, no respiratory distress, no accessory muscle use Peripheral Pulses: 2+ Radial Pulses (R), 2+ Radial Pulses (L) Gastrointestinal: normal bowel sounds, non tender, soft Extremities: no pedal edema, no calf tenderness, normal capillary refill, other (right shoulder has some deformity and limitation to range of motion secondary to pain. There is tenderness in the clavicle as well as the muscles of the right shoulder. 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, alert, normal mood/affect, oriented x 3, facial droop (mild, chronic), other (difficulty speaking which is confirmed chronic eye girlfriend) Skin: normal color, warm/dry [place] Coma Score Best Eye Response: (4) Open Spontaneously Best Verbal Response: (5) Oriented Best Motor Response: (6) Obeys Commands [place] Total: 15 Progress/Results/Core Measures Results/Orders Lab Results Laboratory Tests Test 01/14/18 16:21 01/14/18 16:56 Range/Units White Blood Count 4.0 L 4.3-11.0 10^3/uL Red Blood Count 4.81 4.35-5.85 10^6/uL Hemoglobin 11.4 L 13.3-17.7 G/DL Hematocrit 35 L 40-54 % Mean Corpuscular Volume 73 L 80-99 FL Mean Corpuscular Hemoglobin 24 L 25-34 PG Mean Corpuscular Hemoglobin Concent 32 32-36 G/DL Red Cell Distribution Width 20.1 H 10.0-14.5 % Platelet Count 223 130-400 10^3/uL Mean Platelet Volume 10.0 7.4-10.4 FL Neutrophils (%) (Auto) 51 42-75 % Lymphocytes (%) (Auto) 37 12-44 % Monocytes (%) (Auto) 11 0-12 % Eosinophils (%) (Auto) 1 0-10 % Basophils (%) (Auto) 0 0-10 % Neutrophils # (Auto) 2.0 1.8-7.8 X 10^3 Lymphocytes # (Auto) 1.5 1.0-4.0 X 10^3 Monocytes # (Auto) 0.4 0.0-1.0 X 10^3 Eosinophils # (Auto) 0.1 0.0-0.3 10^3/uL Basophils # (Auto) 0.0 0.0-0.1 10^3/uL Sodium Level 139 135-145 MMOL/L Potassium Level 4.4 3.6-5.0 MMOL/L Chloride Level 106 98-107 MMOL/L Carbon Dioxide Level 26 21-32 MMOL/L Anion Gap 7 5-14 MMOL/L Blood Urea Nitrogen 13 7-18 MG/DL Creatinine 1.28 0.60-1.30 MG/DL Estimat Glomerular Filtration Rate > 60 BUN/Creatinine Ratio 10 Glucose Level 131 H 70-105 MG/DL Calcium Level 9.4 8.5-10.1 MG/DL Total Bilirubin 0.7 0.1-1.0 MG/DL Aspartate Amino Transf (AST/SGOT) 20 5-34 U/L Alanine Aminotransferase (ALT/SGPT) 18 0-55 U/L Alkaline Phosphatase 89 40-136 U/L Total Creatine Kinase 179 30-200 U/L Troponin I < 0.30 <0.30 NG/ML Total Protein 9.1 H 6.4-8.2 GM/DL Albumin 4.3 3.2-4.5 GM/DL Urine Color YELLOW Urine Clarity CLEAR Urine pH 6 5-9 Urine Specific [place] 1.020 1.016-1.022 Urine Protein 1+ H NEGATIVE Urine Glucose (UA) NEGATIVE NEGATIVE Urine Ketones NEGATIVE NEGATIVE Urine Nitrite NEGATIVE NEGATIVE Urine Bilirubin NEGATIVE NEGATIVE Urine Urobilinogen NORMAL NORMAL MG/DL Urine Leukocyte Esterase NEGATIVE NEGATIVE Urine RBC (Auto) NEGATIVE NEGATIVE Urine RBC NONE /HPF Urine WBC NONE /HPF Urine Squamous Epithelial Cells RARE /HPF Urine Crystals NONE /LPF Urine Bacteria NEGATIVE /HPF Urine Casts NONE /LPF Urine Mucus NEGATIVE /LPF Urine Culture Indicated NO My Orders Orders - CAPO RAMÍREZ Ct Head/Cervical Spine Wo (01/14/18 16:16) Saline Lock/Iv-Start (01/14/18 16:16) Cbc With Automated Diff (01/14/18 16:16) Comprehensive Metabolic Panel (01/14/18 16:16) Creatine Kinase (01/14/18 16:16) Ua Culture If Indicated (01/14/18 16:16) Chest 1 View, Ap/Pa Only (01/14/18 16:16) Shoulder, Right, 3 Views (01/14/18 16:16) Forearm, Right, 2 Views (01/14/18 16:16) Hand, Right, 3 Views (01/14/18 16:16) Knee, Right, 3 Views (01/14/18 16:16) Saline Lock/Iv-Start (01/14/18 16:16) Ns Iv 500 Ml (Sodium Chloride 0.9%) (01/14/18 16:16) Fentanyl Injection (Sublimaze Injection (01/14/18 16:30) Ekg Tracing (01/14/18 16:23) Continuous Ekg Monitoring (01/14/18 16:23) Troponin I (01/14/18 16:23) Medications Given in ED Current Medications Medications Dose Ordered Sig/Ulices Route Start Time Stop Time Status Last Admin Dose Admin Fentanyl Citrate 50 mcg ONCE ONCE IVP 01/14/18 16:30 01/14/18 16:31 DC 01/14/18 16:52 50 MCG Sodium Chloride 500 ml @ 0 mls/hr Q0M ONCE IV 01/14/18 16:16 01/14/18 16:20 DC 01/14/18 16:52 0 MLS/HR Vital Signs/I&O 01/14/18 16:46 Temp 97.9 Pulse 62 Resp 18 B/P (MAP) 132/87 (102) Pulse Ox 98 Progress Progress Note : Time: 16:27 Progress Note Going to get a CT scan of his head and neck looking for trouble as well as an x- ray of shoulder, wrist and right knee where he is having some tenderness to palpation. We'll give him some fentanyl for pain as NSAIDs are contraindicated on blood thinners. Telemetry demonstrated a marching T-wave with little relation to the QRS so an EKG was obtained demonstrating what appears to be a third-degree AV block which is not seen on previous EKGs. Dr. Armenta, cardiology has done an electrical cardiac conversion from atrial fibrillation August,. Initial ECG Impression Date: January 14, 2018 Initial ECG Impression Time: 16:23 Initial ECG Rate: 60 Initial ECG Intervals: QT (460) Initial ECG Impression: 3rd Degree AV Block Initial ECG Comparisson: Changed Comment No ST elevation or depression but there is a new onset third degree AV block. Diagnostic Imaging Diagonstic Imaging: Xray Plain Films/CT/US/NM/MRI: chest (1v) Comments No acute cardiopulmonary process noted. Reviewed: Reviewed by Me Diagonstic Imaging: Xray Plain Films/CT/US/NM/MRI: other (right shoulder) Comments Right closed, angulated mildly displaced non-comminuted humeral surgical neck fracture. Reviewed: Reviewed by Me Diagonstic Imaging: Xray Plain Films/CT/US/NM/MRI: other (right wrist and hand) Comments No acute fractures. Osteopenic appearance with some spurring and degenerative changes seen. Reviewed: Reviewed by Me Diagonstic Imaging: Xray Plain Films/CT/US/NM/MRI: knee (right) Comments Osteophyte seen. No acute osseous fractures. Reviewed: Reviewed by Me Diagonstic Imaging: CT Plain Films/CT/US/NM/MRI: c-spine, head Comments NAME: MELODY LAMB [facility] REC#: [id number] PHYSICIAN: CAPO RAMÍREZ MD CC: LUCRETIA YA; CAPO RAMÍREZ Page 2 of 2 RADIOLOGY REPORT VIA [place], [place] CC: LUCRETIA YA; CAPO RAMÍREZ Page 1 of 2 RADIOLOGY REPORT NAME: MELODY LAMB [place] [facility] REC#: [id number] PT STATUS: REG ER : 1960 PHYSICIAN: CAPO RAMÍREZ MD ADMIT DATE: 01/14/18/ER Signed Date of Exam: 01/14/18 CT HEAD/CERVICAL SPINE WO PROCEDURE: CT head and CT cervical spine without contrast. TECHNIQUE: Multiple contiguous axial images were obtained through the brain and cervical spine without the use of intravenous contrast. Sagittal and coronal reformations through the cervical spine were then performed. INDICATION: Fall. COMPARISON: Study compared to 01/16/2017. FINDINGS: CT HEAD: Since the previous exam, a large zone of encephalomalacia in the left hemisphere corresponds to a large MCA territorial infarct as a nonacute finding. The prominence of the cisterna magna is a chronic finding. There is no intracranial hemorrhage. No mass effect, shift, or herniation. There is some motion degradation limiting the exam sensitivity. No appreciable calvarial fracture deformity and no hemo-sinus. Underlying cerebral cortical atrophy and periventricular white matter small vessel sequelae are more advanced for age than would be suspected as a stable superimposed background chronic finding. CT CERVICAL SPINE: Reconstruction views revealed the body heights to be maintained and aligned anatomically. No fracture or paravertebral hemorrhage. No facet joint dislocation. There are carotid atherosclerotic vascular calcifications. IMPRESSION: CT HEAD: Interval evolutionary changes of a remote large left MCA territorial infarct. Background atrophy and white matter small vessel sequelae are premature for age, chronic. No hemorrhage or acute appearing abnormality. CT CERVICAL SPINE: No fracture, stenosis, or traumatic malalignment. Dictated by: Dictated on workstation # [id number] Dict: 01/14/18 172 Trans: 01/14/181735 Interpreted by: LUCRETIA YA Electronically signed by: LUCRETIA YA 01/14/181735 Reviewed: Reviewed by Me Consults #1: Consulting Physician: Kimberly ARMENTA MD Consults Notes Discussed the EKG and he says looks like atrial flutter. We discussed the blood pressure being stable. Consults #2: Consulting Physician: CONNER GABRILE DO Consults Notes Discussed imaging findings and examination. He says but the patient in the sling and follow up with Dr. Riojas in the clinic on Sunday. Call for an appointment. Departure Impression Primary Impression: Fall Qualified Codes: W19.XXXA - Unspecified fall, initial encounter Additional Impressions: Humeral surgical neck fracture Qualified Codes: S42.224A - 2-part nondisplaced fracture of surgical neck of right humerus, initial encounter for closed fracture Atrial flutter by electrocardiogram Disposition: HOME, SELF-CARE Condition: Stable Departure-Patient Inst. Decision time for Depature: 18:25 Referrals: ROSY HOFFMANN MD (PCP) Primary Care Physician [facility] (Family) Primary Care Physician CHRISTIN RIOJAS DO Patient Instructions: Shoulder Fracture (DC) Add. Discharge Instructions: Follow-up with an orthopedic surgeon of your choice within the next [address] Riojas is willing to see you Sunday of this week if you will give his office a call at [facility], [phone]. Use an ice pack for 20 minutes every 4 hours to the right shoulder as needed for pain for the first 3 days. Keep the arm in a sling except to bathe. Use Tylenol 650 mg every 8 hours. You can also use 1-2 tablets of the hydrocodone every 6 hours as needed to control the pain. Hydrocodone will cause constipation and should be used in conjunction with MiraLAX 1 capful in 6-8 ounces of fluid every day that you're using the hydrocodone. If the right arm loses feeling, begins to swell, or pain is getting worse then you should follow-up sooner to have it reexamined. Scripts Ondansetron (Ondansetron Odt) 4 Mg Tab.rapdis 4 MG PO Q6H PRN for NAUSEA/VOMITING, #8 TAB 0 Refills Prov: CAPO RAMÍREZ 01/14/18 Hydrocodone Bit/Acetaminophen (Hydrocodone/Acetaminophen 5/325mg Tablet) 1 Tab Tab 1-2 EACH PO Q6H PRN for BREAKTHROUGH PAIN, #20 TAB 0 Refills Prov: CAPO RAMÍREZ 01/14/18 Copy Copies To 1: VINCE ANDRES DO; Kimberly ARMENTA MD, TITUS J January 14, 2018 16:23
[2018-01-14] MEDS ORDERED: fentaNYL INJECTION 100 MCG/2 ML AMP IVP ONE (16:30)
[2018-01-14 17:02] LABS: BASOPHILS % (AUTO) 0 % (0-10); EOSINOPHILS # (AUTO) 0.1 10^3/uL (0.0-0.3); EOSINOPHILS % (AUTO) 1 % (0-10); HEMATOCRIT 35 % (40-54); HEMOGLOBIN 11.4 G/DL (13.3-17.7); LYMPHOCYTES # (AUTO) 1.5 X 10^3 (1.0-4.0); LYMPHOCYTES % (AUTO) 37 % (12-44); MEAN CORPUSCULAR HEMOGLOBIN 24 PG (25-34); MEAN CORPUSCULAR HGB CONC 32 G/DL (32-36); MEAN CORPUSCULAR VOLUME 73 FL (80-99); MONOCYTES # (AUTO) 0.4 X 10^3 (0.0-1.0); MONOCYTES % (AUTO) 11 % (0-12); NEUTROPHILS % (AUTO) 51 % (42-75); PLATELET COUNT 223 10^3/uL (130-400); RED BLOOD COUNT 4.81 10^6/uL (4.35-5.85); RED CELL DISTRIBUTION WIDTH 20.1 % (10.0-14.5)
[2018-01-14 17:04] LABS: BILIRUBIN,URINE NEGATIVE (NEGATIVE); CLARITY,URINE CLEAR; COLOR,URINE YELLOW; GLUCOSE, URINE (UA) NEGATIVE (NEGATIVE); KETONES,URINE NEGATIVE (NEGATIVE); LEUKOCYTE ESTERASE ,URINE NEGATIVE (NEGATIVE); NITRITE,URINE NEGATIVE (NEGATIVE); PH,URINE 6 (5-9); PROTEIN,URINE 1+ (NEGATIVE); UROBILINOGEN,URINE NORMAL (NORMAL)
[2018-01-14 17:19] LABS: BACTERIA,URINE NEGATIVE /HPF; SQUAMOUS EPITHELIAL CELL,UR RARE /HPF
[2018-01-14 17:21] LABS: ALANINE AMINOTRANSFERASE 18 U/L (0-55); ALBUMIN 4.3 GM/DL (3.2-4.5); ALKALINE PHOSPHATASE 89 U/L (40-136); BILIRUBIN,TOTAL 0.7 MG/DL (0.1-1.0); BUN/CREATININE RATIO 10; CALCIUM 9.4 MG/DL (8.5-10.1); CARBON DIOXIDE 26 MMOL/L (21-32); CHLORIDE 106 MMOL/L (98-107); CREATINE KINASE 179 U/L (30-200); CREATININE SERUM 1.28 MG/DL (0.60-1.30); GFR ESTIMATED > 60; GLUCOSE 131 MG/DL (70-105); POTASSIUM 4.4 MMOL/L (3.6-5.0); SODIUM 139 MMOL/L (135-145); TOTAL PROTEIN 9.1 GM/DL (6.4-8.2)
--- NOTE | 2018-01-14 17:32 | Diagnostic Imaging Report ---
PROCEDURE: CT head and CT cervical spine without contrast. TECHNIQUE: Multiple contiguous axial images were obtained through the brain and cervical spine without the use of intravenous contrast. Sagittal and coronal reformations through the cervical spine were then performed. INDICATION: Fall. COMPARISON: Study compared to 01/16/2017. FINDINGS: CT HEAD: Since the previous exam, a large zone of encephalomalacia in the left hemisphere corresponds to a large MCA territorial infarct as a nonacute finding. The prominence of the cisterna magna is a chronic finding. There is no intracranial hemorrhage. No mass effect, shift, or herniation. There is some motion degradation limiting the exam sensitivity. No appreciable calvarial fracture deformity and no hemo-sinus. Underlying cerebral cortical atrophy and periventricular white matter small vessel sequelae are more advanced for age than would be suspected as a stable superimposed background chronic finding. CT CERVICAL SPINE: Reconstruction views revealed the body heights to be maintained and aligned anatomically. No fracture or paravertebral hemorrhage. No facet joint dislocation. There are carotid atherosclerotic vascular calcifications. IMPRESSION: CT HEAD: Interval evolutionary changes of a remote large left MCA territorial infarct. Background atrophy and white matter small vessel sequelae are premature for age, chronic. No hemorrhage or acute appearing abnormality. CT CERVICAL SPINE: No fracture, stenosis, or traumatic malalignment. Dictated by: Dictated on workstation # [id number]
--- NOTE | 2018-01-14 17:53 | Diagnostic Imaging Report ---
INDICATION: Right hand pain. COMPARISON: None. FINDINGS: Three views of the right hand demonstrate moderate diffuse degenerative joint disease. There is no fracture or dislocation. No bony erosion is seen. IMPRESSION: Degenerative joint disease without underlying fracture. Dictated by: Dictated on workstation # [id number]
--- NOTE | 2018-01-14 17:54 | Diagnostic Imaging Report ---
INDICATION: Chest and arm pain. COMPARISON: 01/16/2017. FINDINGS: Single view of the chest demonstrates cardiac enlargement without overt pulmonary edema. The lungs are clear. There is no pneumothorax. Osseous structures are normal. IMPRESSION: Cardiac enlargement without pulmonary edema or infiltrate. Dictated by: Dictated on workstation # [id number]
--- NOTE | 2018-01-14 17:55 | Diagnostic Imaging Report ---
INDICATION: Right knee pain COMPARISON: None. FINDINGS: Three views of the right knee demonstrate mild tricompartment degenerative joint disease. This is most pronounced involving the patellofemoral joint. There is no fracture or dislocation. There is no joint effusion. Atherosclerosis is present. IMPRESSION: 1. Mild tricompartment degenerative joint disease. 2. Atherosclerosis. Dictated by: Dictated on workstation # [id number]
--- NOTE | 2018-01-14 17:56 | Diagnostic Imaging Report ---
INDICATION: Right forearm pain. COMPARISON: None. FINDINGS: Two views of the right forearm demonstrate atherosclerosis. There are some mild degenerative changes of the radiocarpal joint. There is no obvious fracture or dislocation. The visualized elbow is intact. IMPRESSION: 1. No fracture or dislocation. 2. Atherosclerosis. Dictated by: Dictated on workstation # [id number]
--- NOTE | 2018-01-14 17:58 | Diagnostic Imaging Report ---
INDICATION: Right arm injury, pain. COMPARISON: None. FINDINGS: Three views of the right shoulder demonstrate nondisplaced fracture of the proximal humerus. There is no dislocation. Mild degenerative changes are present. No osseous lesion. IMPRESSION: Nondisplaced proximal humeral fracture. Dictated by: Dictated on workstation # [id number]
[2018-01-14] MEDS ORDERED: ONDA4TAB11 PO (18:30)
[2018-01-14] MEDS ORDERED: ACHD5005 PO (18:30)
[2018-01-14] MEDS ORDERED: HYDROcodone/APAP 5 MG/325 MG (LORTAB) TAB PO ONE (18:45)
[2018-01-14 18:53] VITALS: BP 170/103
== END 2018-01-14 18:53 | disposition home or self-care (01) ==
LOC: EDUNIT# 16:07 → ER 16:08
DX: S42.224A 2-part nondisplaced fracture of surgical neck of right humerus, initial encounter for closed fracture (principal); I48.92 Unspecified atrial flutter; R40.2142 Coma scale, eyes open, spontaneous, at arrival to emergency department; R40.2252 Coma scale, best verbal response, oriented, at arrival to emergency department; R40.2362 Coma scale, best motor response, obeys commands, at arrival to emergency department; I48.91 Unspecified atrial fibrillation; E78.00 Pure hypercholesterolemia, unspecified; I10 Essential (primary) hypertension; K21.9 Gastro-esophageal reflux disease without esophagitis; E11.9 Type 2 diabetes mellitus without complications; F32.9 Major depressive disorder, single episode, unspecified; Z86.73 Personal history of transient ischemic attack (TIA), and cerebral infarction without residual deficits; Z79.01 Long term (current) use of anticoagulants; Z79.4 Long term (current) use of insulin; Z87.891 Personal history of nicotine dependence; W19.XXXA Unspecified fall, initial encounter; Y92.003 Bedroom of unspecified non-institutional (private) residence as the place of occurrence of the external cause
CPT/HCPCS: 36415; 70450; 71045; 72125; 73030; 73090; 73130; 73562; 80053; 81000; 82550; 84484; 85025; 93005; 96374

== ENCOUNTER 2018-01-24 07:21 | Day surgery (SDC) | payer MEDICAID ==
[2018-01-24] VITALS (11 sets, daily range): BP systolic 97–135; BP diastolic 61–87
[~2018-01-24] VITALS: Ht 193 cm; Wt 99.8 kg
[~2018-01-24 07:21] MED LIST changes: +ACHD5005 PO; +ONDA4TAB11 PO
[2018-01-24] MEDS ORDERED: NS IV 1000 ML 1,000 ML ONE (07:37)
[2018-01-24] MEDS ORDERED: NS IV 1000 ML 1,000 ML IV SCH (07:51)
[2018-01-24 08:28] LABS: HEMOGLOBIN 9.2 G/DL (13.3-17.7); MEAN PLATELET VOLUME 9.2 FL (7.4-10.4); RED BLOOD COUNT 3.79 10^6/uL (4.35-5.85); WHITE BLOOD COUNT 5.6 10^3/uL (4.3-11.0)
[2018-01-24 08:51] LABS: INR 1.4 (0.8-1.4); PROTHROMBIN TIME PATIENT 17.5 SEC (12.2-14.7)
[2018-01-24 08:53] LABS: ALANINE AMINOTRANSFERASE 20 U/L (0-55); ALBUMIN 3.7 GM/DL (3.2-4.5); ALKALINE PHOSPHATASE 88 U/L (40-136); BILIRUBIN,TOTAL 0.8 MG/DL (0.1-1.0); BUN/CREATININE RATIO 14; CALCIUM 8.9 MG/DL (8.5-10.1); CARBON DIOXIDE 22 MMOL/L (21-32); CHLORIDE 107 MMOL/L (98-107); CREATININE SERUM 1.03 MG/DL (0.60-1.30); GFR ESTIMATED > 60; GLUCOSE 155 MG/DL (70-105); POTASSIUM 4.4 MMOL/L (3.6-5.0); SODIUM 137 MMOL/L (135-145); TOTAL PROTEIN 8.5 GM/DL (6.4-8.2)
[2018-01-24] MEDS ORDERED: ATOR20TA66 PO (09:19)
[2018-01-24] MEDS ORDERED: MIDAZOLAM 5 MG/5 ML (VERSED) VIAL ONE (09:23)
[2018-01-24] MEDS ORDERED: proPOfol 200 MG/20 ML (DIPRIVAN) VIAL IV ONE (09:23)
[2018-01-24] MEDS ORDERED: ASPI-586 PO (09:26)
[2018-01-24] MEDS ORDERED: LEVE10006 PO (09:31)
[2018-01-24] MEDS ORDERED: LEVE250T5 PO (09:32)
[2018-01-24] MEDS ORDERED: LEVE500T6 PO (09:32)
[2018-01-24] MEDS ORDERED: POTA10TA36 PO (09:34)
[2018-01-24] MEDS ORDERED: DILT120T3 PO (09:35)
[2018-01-24] MEDS ORDERED: FERR-84 PO (09:37)
--- NOTE | 2018-01-24 09:51 | Anesthesia-Procedure Note ---
Procedures/Interventions Procedure Start/Stop/Diagnosis Date of Procedure: January 24, 2018 Start Time: 09:30 Referring Physician: Kathi Preprocedural Diagnosis: A-fib/A-flutter Stop Time: 09:38 AMARILYS/Cardioversion Anesthesia Type: MAC ASA Class: 3 Medications Versed 1mg Propofol 50mg Monitors and Equipment: BP Cuff - Left, Continuous EKG, End Tidal CO2, IV, Pulse Oximeter READING,JOHN Walter CRNA January 24, 2018 09:51
--- NOTE | 2018-01-24 09:55 | Cardioversion ---
Cardioversion PROCEDURE PHYSICIAN: Immanuel Armenta MD DATE OF PROCEDURE: 01/24/18 DIRECT EXTERNAL ELECTRICAL CARDIOVERSION: Indications: Atrial flutter with variable ventricular rate Preoperative diagnoses: Atrial flutter with variable ventricular rate Postoperative diagnosis: Sinus rhythm, Successful Electrical Cardioversion History: Anesthesia: By Anesthesia services Complications: None Specimen: None Contrast: 0 Flouroscopy: none Procedure Details: The patient was brought the label printing machinist after informed consent was taken, all the risks and complications were explained including the risk of stroke. Electrical cardioversion was carried out with anesthesia support with propofol. Patient is on uninterrupted Eliquis therapy for at least 1 month. First shock was 150 J which did not convert to sinus rhythm. Second shock was 200 joules of synchronized shock was delivered through external patches which promptly restored sinus rhythm. The patient tolerated the procedure well. Conclusions: 1.Successful Cardioversion. 2.Continue oral anticoagulation and rate controlling agent. 3.Follow up in office in 4 weeks. Immanuel Armenta MD, FHRS, CCDS Cardiac Electrophysiology Kimberly ARMENTA MD January 24, 2018 9:55 am
== END 2018-01-24 12:05 | disposition home or self-care (01) ==
LOC: CATH 07:21
PROVIDERS: ATTEND Internal Medicine Interventional Cardiology
DX: I48.92 Unspecified atrial flutter (principal); I12.9 Hypertensive chronic kidney disease with stage 1 through stage 4 chronic kidney disease, or unspecified chronic kidney disease; N18.9 Chronic kidney disease, unspecified; E11.22 Type 2 diabetes mellitus with diabetic chronic kidney disease; E78.5 Hyperlipidemia, unspecified; I73.9 Peripheral vascular disease, unspecified; I69.351 Hemiplegia and hemiparesis following cerebral infarction affecting right dominant side; F17.210 Nicotine dependence, cigarettes, uncomplicated; Z79.01 Long term (current) use of anticoagulants; Z79.84 Long term (current) use of oral hypoglycemic drugs; Z79.899 Other long term (current) drug therapy
CPT/HCPCS: 36415; 80053; 85027; 85610; 85730; 87081; 92960; 93005

== ENCOUNTER → 2018-04-04 | Day surgery (SDC) | payer MEDICAID ==
[2018-04-04] VITALS (11 sets, daily range): BP systolic 100–136; BP diastolic 69–102
[~2018-04-04] VITALS: Ht 188 cm; Wt 99.8 kg
[~2018-04-04] MED LIST changes: -AMIO200T2 PO; +AMIO200T4 PO; +ASPI-586 PO; +DILT120T3 PO; +FERR-84 PO; +LEVE250T5 PO; +NS IV 1000 ML 1,000 ML IV SCH; +NS IV 1000 ML 1,000 ML ONE; +POTA10TA36 PO; +proPOfol 200 MG/20 ML (DIPRIVAN) VIAL IV ONE
--- NOTE | 2018-04-04 10:42 | Anesthesia-Procedure Note ---
Procedures/Interventions Procedure Start/Stop/Diagnosis Date of Procedure: Apr 04, 2018 Start Time: 10:24 Referring Physician: Dr Armenta Preprocedural Diagnosis: Organized Atrial Rhythm Brief History Anesthesia Note ([id number]) Called to laboratory coordinator for sedation for cardioversion. Brief history obtained from Dr Armenta. NPO status verified. Propofol 100 mg IV given for sedation. Return to sinus rhythm after first cardioversion. VSS throughout including spontaneous ventilation maintained verified by +EtCO2. Will be available if needed. Stop Time: 10:32 Postprocedural Diagnosis: Sinus Rhythm AMARILYS/Cardioversion Anesthesia Type: MAC ASA Class: 3 Medications Propofol 100 mg IV Monitors and Equipment: BP Cuff - Left, Continuous EKG, End Tidal CO2, IV, Pulse Oximeter VAL ARMENTA DO Apr 04, 2018 10:42
--- NOTE | 2018-04-04 12:22 | Cardioversion ---
Cardioversion PROCEDURE PHYSICIAN: Immanuel Armenta MD DATE OF PROCEDURE: 04/04/18 DIRECT EXTERNAL ELECTRICAL CARDIOVERSION: Indications: Ectopic atrial rhythm. Atrial fibrillation. Preoperative diagnoses: Ectopic atrial rhythm. Atrial fibrillation. Postoperative diagnosis: Sinus rhythm, Successful Electrical Cardioversion History: This is a 57-year-old gentleman with history of atrial fibrillation. Previous unsuccessful cardioversion. The patient was started on propafenone and rescheduled for cardioversion. Anesthesia: By Anesthesia services Complications: None Specimen: None Contrast: 0 Flouroscopy: none Procedure Details: The patient was brought the cleaner laboratory equipment after informed consent was taken, all the risks and complications were explained including the risk of stroke. Patient has been on uninterrupted oral anticoagulation for at least the last one month. Electrical cardioversion was carried out with anesthesia support with propofol. 120 joules of synchronized shock was delivered through external patches which promptly restored sinus rhythm. The patient tolerated the procedure well. Conclusions: 1.Successful Cardioversion. 2.Continue oral anticoagulation and rate controlling agent. 3.Follow up in office in 2-3 weeks. Immanuel Armenta MD, RS, CCDS Cardiac Electrophysiology Kimberly ARMENTA MD Apr 04, 2018 12:22 pm
== END | disposition home or self-care (01) ==
LOC: CATH 07:57
PROVIDERS: ATTEND Internal Medicine Interventional Cardiology
DX: I48.91 Unspecified atrial fibrillation (principal); I12.9 Hypertensive chronic kidney disease with stage 1 through stage 4 chronic kidney disease, or unspecified chronic kidney disease; N18.9 Chronic kidney disease, unspecified; E11.21 Type 2 diabetes mellitus with diabetic nephropathy; E78.5 Hyperlipidemia, unspecified; I73.9 Peripheral vascular disease, unspecified; Z87.891 Personal history of nicotine dependence; I69.351 Hemiplegia and hemiparesis following cerebral infarction affecting right dominant side; Z79.01 Long term (current) use of anticoagulants; Z79.84 Long term (current) use of oral hypoglycemic drugs
CPT/HCPCS: 92960; 93005

== ENCOUNTER 2018-04-05 13:46 | Outpatient (RCR) | payer MEDICAID ==
[~2018-04-05 13:46] MED LIST changes: -NS IV 1000 ML 1,000 ML IV SCH; -NS IV 1000 ML 1,000 ML ONE; -proPOfol 200 MG/20 ML (DIPRIVAN) VIAL IV ONE
== END 2018-04-08 | disposition home or self-care (01) ==
PROVIDERS: ATTEND Internal Medicine
DX: R47.01 Aphasia (principal); R41.89 Other symptoms and signs involving cognitive functions and awareness

== ENCOUNTER 2018-05-23 10:17 | Outpatient (RCR) | payer MEDICAID ==
[~2018-05-23 10:17] MED LIST changes: +METF-399 PO; -METF10002 PO
== END 2018-05-27 13:22 | disposition home or self-care (01) ==
PROVIDERS: ATTEND Internal Medicine
DX: I69.320 Aphasia following cerebral infarction (principal); I69.351 Hemiplegia and hemiparesis following cerebral infarction affecting right dominant side

== ENCOUNTER 2018-08-22 15:26 | Outpatient (RCR) | payer MEDICAID ==
[~2018-08-22 15:26] MED LIST changes: -POLY255P PO; +POLY255P16 PO
== END 2018-08-26 | disposition home or self-care (01) ==
PROVIDERS: ATTEND Internal Medicine
DX: I69.320 Aphasia following cerebral infarction (principal); I69.351 Hemiplegia and hemiparesis following cerebral infarction affecting right dominant side

== ENCOUNTER 2018-10-17 11:17 | Outpatient (RCR) | payer MEDICAID | END 2018-10-22 12:19 | disposition home or self-care (01) | PROVIDERS: ATTEND Nurse Practitioner Community Health | DX: I69.320 Aphasia following cerebral infarction (principal); I69.351 Hemiplegia and hemiparesis following cerebral infarction affecting right dominant side ==

== ENCOUNTER 2018-11-14 16:55 | Emergency (ER) | payer MEDICAID ==
[~2018-11-14] VITALS: Ht 180.3 cm; Wt 108.9 kg
[2018-11-14] MEDS ORDERED: NS IV 500 ML 500 ML IV SCH (17:15)
[2018-11-14] MEDS ORDERED: IBUPROFEN 800 MG (MOTRIN) TAB PO ONE (17:15)
[2018-11-14] MEDS ORDERED: meTOprolol 5 MG/5 ML (LOPRESSOR) VIAL IV ONE ×2 (17:15→18:30)
[2018-11-14 17:19] VITALS: BP 147/130
--- NOTE | 2018-11-14 17:21 | ED General ---
General Stated Complaint: HTN,SOB Source of Information: Patient, EMS Exam Limitations: No Limitations History of Present Illness Date Seen by Provider: Nov 14, 2018 Time Seen by Provider: 17:17 Initial Comments To ER per EMS from home with reports of shortness of breath high blood pressure. Noted to be febrile at 101.5. Symptoms started either today or yesterday. He has a history of atrial fibrillation and takes carvedilol 25 mg daily, Eliquis 5 mg twice a day and Cardizem 120 mg twice a day. EMS noted him to be tachycardic at about 140 (atrial fibrillation) and with an oxygen saturation of 83% and he typically does not wear oxygen.. He does report shortness of breath. History of CVA with right-sided weakness and dysphasia. Timing/Duration: 1-2 Days Severity: Moderate Associated Systoms: No Chest Pain; Fever/Chills; No Nausea/Vomiting; Shortness of Air Allergies and Home Medications Allergies Coded Allergies: No Known Drug Allergies (Unverified , 01/16/17) Home Medications Acetaminophen 325 Mg Tablet, 650 MG PO Q4H PRN for PAIN-MILD, (Reported) TAKES 2 (325MG) TABLETS Apixaban 5 Mg Tablet, 5 MG PO BID, (Reported) Aspirin 81 Mg Tablet.dr, 81 MG PO DAILY, (Reported) Atorvastatin Calcium 20 Mg Tablet, 20 MG PO DAILY, (Reported) Carvedilol 25 Mg Tablet, 25 MG PO BID, (Reported) Diltiazem HCl 120 Mg Tablet, 120 MG PO BID, (Reported) Ergocalciferol (Vitamin D2) 50,000 Unit Capsule, 50,000 UNIT PO WEEK, (Reported) Ferrous Sulfate 325 Mg Tablet, 650 MG PO DAILY, (Reported) Fluoxetine HCl 40 Mg Capsule, 40 MG PO DAILY, (Reported) Hydrocodone Bit/Acetaminophen 1 Tab Tab, 1-2 EACH PO Q6H PRN for BREAKTHROUGH PAIN Prescribed by: CAPO RAMÍREZ on 01/14/18 1830 Levetiracetam 1,000 Mg Tablet, 1,000 MG PO BID, (Reported) Levetiracetam 500 Mg Tablet, 500 MG PO BID, (Reported) Multivitamin with Minerals 1 Each Tablet, 1 TAB PO DAILY, (Reported) Ondansetron 4 Mg Tab.rapdis, 4 MG PO Q6H PRN for NAUSEA/VOMITING Prescribed by: CAPO RAMÍREZ on 01/14/18 1830 Polyethylene Glycol 3350 255 Gm Powder, 17 GM PO DAILY PRN for CONSTIPATION-2ND LINE, (Reported) Potassium Chloride 10 Meq Tab.er.prt, 10 MEQ PO DAILY, (Reported) Sitagliptin Phosphate 100 Mg Tablet, 100 MG PO DAILY, (Reported) Patient Home Medication List Home Medication List Reviewed: Yes Review of Systems Review of Systems Constitutional: see HPI, chills, fever EENTM: see HPI Respiratory: see HPI, dyspnea on exertion, short of breath Cardiovascular: no symptoms reported Genitourinary: no symptoms reported Musculoskeletal: no symptoms reported Skin: no symptoms reported Psychiatric/Neurological: No Symptoms Reported Hematologic/Lymphatic: No Symptoms Reported Past Hzhudbz-Rnbixm-Maolic Hx Patient Social History Type Used: Cigarettes Former Smoker, Quit: January 16, 2017 2nd Hand Smoke Exposure: Yes Recent Foreign Travel: No Contact w/Someone Who Travel: No Recent Hopitalizations: Yes Immunizations Up To Date Date of Pneumonia Vaccine: May 09, 2017 Date of Influenza Vaccine: May 09, 2017 Seasonal Allergies Seasonal Allergies: No Past Medical History Surgeries: No (lower back bone biopsy, neg heart cath) Respiratory: No Currently Using CPAP: No Currently Using BIPAP: No Cardiac: Yes Atrial Fibrillation, High Cholesterol, Hypertension Neurological: Yes Stroke Sexually Transmitted Disease: No HIV/AIDS: No Genitourinary: No Renal Failure Gastrointestinal: No (dysphasia) Gastroesophageal Reflux Musculoskeletal: Yes (right-sided weakness -CVA) 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 0.0oz. 99.295343dt; 28.3 BMI Method:Stated General Appearance: No Apparent Distress, WD/WN, Other (on arrival to ER he is febrile at 101, heart rate is 140 A. fib with occasional PVC. Blood pressure 140 /100. Poor IV access in the dorsal left hand with a 22-gauge that will not draw/ started a 20-gauge in the right external jugular. Blood cultures were obtained, labs were drawn. He was 98-91% on 4 L of supplemental oxygen and typically does not wear oxygen so we initiated BiPAP.) Eyes: Bilateral Eye Normal Inspection, Bilateral Eye PERRL, Bilateral Eye EOMI HEENT: PERRL/EOMI Neck: Full Range of Motion, Normal Inspection, JVD Respiratory: No Accessory Muscle Use, No Respiratory Distress, Decreased Breath Sounds; No Wheezing Cardiovascular: Normal Peripheral Pulses, Irregularly Irregular, Tachycardia Gastrointestinal: Normal Bowel Sounds, Non Tender, Soft Extremity: Normal Capillary Refill, Normal Inspection, Other (right arm flaccid per baseline) Neurologic/Psychiatric: Alert, Oriented x3, Motor Weakness (right arm/leg- chronic) Skin: Normal Color, Warm/Dry Focused Exam Lactate Level 11/14/18 17:10: Lactic Acid Level 1.87 Lactic Acid Level Laboratory Tests Test 11/14/18 17:10 Lactic Acid Level 1.87 MMOL/L (0.50-2.00) Progress/Results/Core Measures Suspected Sepsis SIRS Temperature: Pulse: Respiratory Rate: Laboratory Tests 11/14/18 17:10: White Blood Count 5.2 Blood Pressure / Mean: 11/14/18 17:10: Lactic Acid Level 1.87 Laboratory Tests 11/14/18 17:10: Creatinine 1.20, Platelet Count 218, Total Bilirubin 1.1H Results/Orders Lab Results Laboratory Tests Test 11/14/18 17:10 Range/Units White Blood Count 5.2 4.3-11.0 10^3/uL Red Blood Count 4.73 4.35-5.85 10^6/uL Hemoglobin 11.5 L 13.3-17.7 G/DL Hematocrit 35 L 40-54 % Mean Corpuscular Volume 75 L 80-99 FL Mean Corpuscular Hemoglobin 24 L 25-34 PG Mean Corpuscular Hemoglobin Concent 33 32-36 G/DL Red Cell Distribution Width 17.6 H 10.0-14.5 % Platelet Count 218 130-400 10^3/uL Mean Platelet Volume 10.2 7.4-10.4 FL Neutrophils (%) (Auto) 68 42-75 % Lymphocytes (%) (Auto) 18 12-44 % Monocytes (%) (Auto) 14 H 0-12 % Eosinophils (%) (Auto) 0 0-10 % Basophils (%) (Auto) 0 0-10 % Neutrophils # (Auto) 3.5 1.8-7.8 X 10^3 Lymphocytes # (Auto) 0.9 L 1.0-4.0 X 10^3 Monocytes # (Auto) 0.7 0.0-1.0 X 10^3 Eosinophils # (Auto) 0.0 0.0-0.3 10^3/uL Basophils # (Auto) 0.0 0.0-0.1 10^3/uL Sodium Level 135 135-145 MMOL/L Potassium Level 4.0 3.6-5.0 MMOL/L Chloride Level 105 98-107 MMOL/L Carbon Dioxide Level 21 21-32 MMOL/L Anion Gap 9 5-14 MMOL/L Blood Urea Nitrogen 14 7-18 MG/DL Creatinine 1.20 0.60-1.30 MG/DL Estimat Glomerular Filtration Rate > 60 BUN/Creatinine Ratio 12 Glucose Level 167 H 70-105 MG/DL Lactic Acid Level 1.87 0.50-2.00 MMOL/L Calcium Level 9.2 8.5-10.1 MG/DL Corrected Calcium 9.2 8.5-10.1 MG/DL Total Bilirubin 1.1 H 0.1-1.0 MG/DL Aspartate Amino Transf (AST/SGOT) 29 5-34 U/L Alanine Aminotransferase (ALT/SGPT) 29 0-55 U/L Alkaline Phosphatase 121 40-136 U/L Troponin I 0.082 H <0.028 NG/ML B-Type Natriuretic Peptide 811.0 H <100.0 PG/ML Total Protein 9.3 H 6.4-8.2 GM/DL Albumin 4.0 3.2-4.5 GM/DL Micro Results Microbiology 11/14/18 Influenza Types A,B Antigen (ANIBAL) - Final, Complete My Orders Orders - JACOBO CAVANAUGH [employer]OMAT[employer] BUFFING WHEEL FORMER Cbc With Automated Diff (11/14/18 17:14) Comprehensive Metabolic Panel (11/14/18 17:14) Blood Culture (11/14/18 17:14) Lactic Acid Analyzer (11/14/18 17:14) BNP (11/14/18 17:14) Troponin I (11/14/18 17:14) Influenza A And B Antigens (11/14/18 17:14) Chest 1 View, Ap/Pa Only (11/14/18 17:14) Iv Heplock-Insert (Order) (11/14/18 17:14) Ibuprofen Tablet (Motrin Tablet) (11/14/18 17:15) Ns Iv 500 Ml (Sodium Chloride 0.9%) (11/14/18 17:15) Metoprolol Tartrate Injection (Lopressor (11/14/18 17:15) Bipap (Bilevel) Set Up (11/14/18 17:16) Ekg Tracing (11/14/18 17:27) Continuous Ekg Monitoring (11/14/18 17:27) Metoprolol Tartrate Injection (Lopressor (11/14/18 18:30) Piperacillin/Tazobactam (Bulk) (Zosyn In (11/14/18 18:30) Piperacillin Sodium/Tazobactam (Zosyn Vi (11/14/18 18:45) Ns (Ivpb) (Sodium Chloride 0.9% Ivpb Bag (11/14/18 18:46) Diltiazem Injection (Cardizem Injection) (11/14/18 19:00) Ns (Ivpb) (Sodium C... W/Diltiazem Injec (11/14/18 19:00) Furosemide Injection (Lasix Injection) (11/14/18 19:00) Medications Given in ED Current Medications Medications Dose Ordered Sig/Ulices Route Start Time Stop Time Status Last Admin Dose Admin Diltiazem HCl 10 mg ONCE ONCE IVP 11/14/18 19:00 11/14/18 19:01 DC 11/14/18 19:24 10 MG Ibuprofen 800 mg ONCE ONCE PO 11/14/18 17:15 11/14/18 17:17 DC 11/14/18 17:43 800 MG Metoprolol Tartrate 5 mg ONCE ONCE IV 11/14/18 17:15 11/14/18 17:17 DC 11/14/18 17:43 5 MG Piperacillin Sod/ Tazobactam Sod 4.5 gm/Sodium Chloride 120 ml @ 240 mls/hr ONCE ONCE IV 11/14/18 18:30 11/14/18 18:59 DC 11/14/18 19:30 240 MLS/HR Vital Signs/I&O 11/14/18 11/14/18 11/14/18 17:19 17:51 18:39 Temp 98.0 Pulse 137 146 140 Resp 24 24 28 B/P (MAP) 164/108 (126) Pulse Ox 100 100 O2 Flow Rate 30.00 30.00 Capillary Refill : Departure Communication (Admissions) 1909-heart rate remains 120-140 atrial fibrillation. Blood pressure 115/89. BNP elevated at 811, chest x-ray shows either pneumonia or pulmonary edema, based on clinical exam is likely a combination of both. He has a fever, he also has hypoxia shortness of breath and jugular vein distention. He is getting Zosyn 4.5 g IV 1, Lasix 20 mg IV 1, Cardizem drip at 10 mg an hour after 10 mg bolus. He's on BiPAP, settings 12/6, 30% FiO2 with oxygen saturation 96% and respiratory rate of 26. We are unfortunately out of intensive care unit rooms so he will require transfer to a facility that has that capability. 192- spoke with Dr. Lopez, electrical and radio mock up mechanic at [facility] agrees to accept the patient in transfer. Impression Primary Impression: Atrial fibrillation with rapid ventricular response Disposition: XFER SHT-TRM HOSP Condition: Stable Departure-Patient Inst. Referrals: [facility] (PCP/Family) Primary Care Physician JACOBO CAVANAUGH APRN Nov 14, 2018 17:20
[2018-11-14 17:51] VITALS: BP 149/122
[2018-11-14 17:59] LABS: BASOPHILS % (AUTO) 0 % (0-10); EOSINOPHILS % (AUTO) 0 % (0-10); HEMATOCRIT 35 % (40-54); HEMOGLOBIN 11.5 G/DL (13.3-17.7); LYMPHOCYTES # (AUTO) 0.9 X 10^3 (1.0-4.0); LYMPHOCYTES % (AUTO) 18 % (12-44); MEAN CORPUSCULAR HEMOGLOBIN 24 PG (25-34); MEAN CORPUSCULAR HGB CONC 33 G/DL (32-36); MEAN CORPUSCULAR VOLUME 75 FL (80-99); MEAN PLATELET VOLUME 10.2 FL (7.4-10.4); MONOCYTES # (AUTO) 0.7 X 10^3 (0.0-1.0); MONOCYTES % (AUTO) 14 % (0-12); NEUTROPHILS # (AUTO) 3.5 X 10^3 (1.8-7.8); NEUTROPHILS % (AUTO) 68 % (42-75); PLATELET COUNT 218 10^3/uL (130-400); RED CELL DISTRIBUTION WIDTH 17.6 % (10.0-14.5); WHITE BLOOD COUNT 5.2 10^3/uL (4.3-11.0)
--- NOTE | 2018-11-14 18:06 | Diagnostic Imaging Report ---
INDICATION: Shortness of breath. COMPARISON: 01/14/2018. FINDINGS: New right lower lobe patchy consolidations. There are also ill-defined consolidations in left upper lung zone. Heart is enlarged similar to prior examination. No pleural effusion or pneumothorax. Posterior lower lobes are poorly evaluated by portable radiography. IMPRESSION: New multifocal pulmonary opacities could be on the basis of multifocal pneumonia versus asymmetric pulmonary edema. Dictated by: Dictated on workstation # [id number]
[2018-11-14 18:23] LABS: ALANINE AMINOTRANSFERASE 29 U/L (0-55); ALKALINE PHOSPHATASE 121 U/L (40-136); BILIRUBIN,TOTAL 1.1 MG/DL (0.1-1.0); BUN/CREATININE RATIO 12; CALCIUM 9.2 MG/DL (8.5-10.1); CARBON DIOXIDE 21 MMOL/L (21-32); CHLORIDE 105 MMOL/L (98-107); GFR ESTIMATED > 60; GLUCOSE 167 MG/DL (70-105); SODIUM 135 MMOL/L (135-145); TOTAL PROTEIN 9.3 GM/DL (6.4-8.2)
[2018-11-14] MEDS ORDERED: PIPERACILLIN/TAZOBACTAM (BULK) 4.5 GM in NS (IVPB) 100 ML IV ONE (18:30)
[2018-11-14] MEDS ORDERED: PIPERACILLIN/TAZO 4.5 GM VIAL (ZOSYN) IV ONE (18:45)
[2018-11-14] MEDS ORDERED: NS (IVPB) 100 ML ONE (18:46)
[2018-11-14] MEDS ORDERED: DILTIAZEM 25 MG/5 ML INJ (CARDIZEM) VIAL IVP ONE (19:00)
[2018-11-14] MEDS ORDERED: FUROSEMIDE 40 MG/4 ML INJ (LASIX) IVP ONE (19:00)
[2018-11-14] MEDS ORDERED: DILTIAZEM INJECTION 125 MG in NS (IVPB) 100 ML IV SCH (19:00)
[2018-11-14 20:11] VITALS: BP 120/88
== END 2018-11-14 20:11 | disposition short-term general hospital (02) ==
LOC: EDUNIT# 16:55 → ER 16:57
DX: I48.91 Unspecified atrial fibrillation (principal); E78.00 Pure hypercholesterolemia, unspecified; I10 Essential (primary) hypertension; K21.9 Gastro-esophageal reflux disease without esophagitis; E11.9 Type 2 diabetes mellitus without complications; F32.9 Major depressive disorder, single episode, unspecified; Z87.19 Personal history of other diseases of the digestive system; Z87.448 Personal history of other diseases of urinary system; Z99.81 Dependence on supplemental oxygen; Z86.73 Personal history of transient ischemic attack (TIA), and cerebral infarction without residual deficits; Z79.01 Long term (current) use of anticoagulants; Z79.82 Long term (current) use of aspirin; Z87.891 Personal history of nicotine dependence
CPT/HCPCS: 36415; 71045; 80053; 83605; 83880; 84484; 85025; 87040; 87804; 93005

== ENCOUNTER 2019-02-01 21:51 | Observation (INO) | payer MEDICAID ==
[~2019-02-01] VITALS: Ht 180.3 cm; Wt 101.3 kg
[2019-02-01] MEDS ORDERED: NS IV 1000 ML 1,000 ML IV SCH (21:57)
[2019-02-01] MEDS ORDERED: NS IV 1000 ML 1,000 ML IV ONE (21:57)
--- NOTE | 2019-02-01 22:04 | ED Neurological Problem ---
General Chief Complaint: Neurological Problems Stated Complaint: SEIZURE Source: patient, EMS, old records, caregiver Exam Limitations: no limitations History of Present Illness Date Seen by Provider: Feb 01, 2019 Time Seen by Provider: 21:48 Initial Comments The patient presents to ER by EMS with chief complaint of having a second i nguyen today. He has a history of epilepsy and is on Keppra and has been taking it routinely. He has a caregiver who stays with him during the day and make sure he takes his medications. He is having a cough recently and did have vomitus times one after his seizure. No choking episode. The patient has a history of CVA with residual right sided weakness. He is nonverbal at baseline but can answer yes and no by nodding his head. He does indicate he is having some pain in his right arm and has a few superficial abrasions to bilateral anterior knees. Denies sore throat. He does not use oxygen at baseline but was satting in the 87-90% range so EMS put him on 2 L nasal cannula. Allergies and Home Medications Allergies Coded Allergies: No Known Drug Allergies (Unverified , 01/16/17) Home Medications Acetaminophen 325 Mg Tablet, 650 MG PO Q4H PRN for PAIN-MILD, (Reported) TAKES 2 (325MG) TABLETS Apixaban 5 Mg Tablet, 5 MG PO BID, (Reported) Aspirin 81 Mg Tablet.dr, 81 MG PO DAILY, (Reported) Atorvastatin Calcium 20 Mg Tablet, 20 MG PO DAILY, (Reported) Carvedilol 25 Mg Tablet, 25 MG PO BID, (Reported) Diltiazem HCl 120 Mg Tablet, 120 MG PO BID, (Reported) Ergocalciferol (Vitamin D2) 50,000 Unit Capsule, 50,000 UNIT PO WEEK, (Reported) Ferrous Sulfate 325 Mg Tablet, 650 MG PO DAILY, (Reported) Fluoxetine HCl 40 Mg Capsule, 40 MG PO DAILY, (Reported) Levetiracetam 1,000 Mg Tablet, 1,000 MG PO BID, (Reported) Levetiracetam 500 Mg Tablet, 500 MG PO BID, (Reported) Multivitamin with Minerals 1 Each Tablet, 1 TAB PO DAILY, (Reported) Polyethylene Glycol 3350 255 Gm Powder, 17 GM PO DAILY PRN for CONSTIPATION-2ND LINE, (Reported) Potassium Chloride 10 Meq Tab.er.prt, 10 MEQ PO DAILY, (Reported) Sitagliptin Phosphate 100 Mg Tablet, 100 MG PO DAILY, (Reported) Patient Home Medication List Home Medication List Reviewed: Yes Review of Systems Review of Systems Constitutional: see HPI (review of symptoms are limited secondary to the patient only able to grunt and occasionally nod his head yes or no. He is also postictal.); No fever Eyes: Denies Blindness, Denies Blurred Vision Respiratory: cough; No phlegm, No wheezing Cardiovascular: No chest pain, No palpitations Gastrointestinal: No abdominal pain, No diarrhea, No dysphagia Genitourinary: No discharge, No dysuria Past Ygsgwkq-Agpzbi-Cvjfru Hx Patient Social History Alcohol Use: Denies Use Recreational Drug Use: Yes Drug of Choice: MJ Smoking Status: Current Everyday Smoker Type Used: Cigarettes Former Smoker, Quit: January 16, 2017 2nd Hand Smoke Exposure: Yes Recent Foreign Travel: No Contact w/Someone Who Travel: No Recent Hopitalizations: Yes Immunizations Up To Date Date of Pneumonia Vaccine: May 09, 2017 Date of Influenza Vaccine: May 09, 2017 Seasonal Allergies Seasonal Allergies: No Past Medical History Surgeries: No (lower back bone biopsy, neg heart cath) Respiratory: No Currently Using CPAP: No Currently Using BIPAP: No Cardiac: Yes Atrial Fibrillation, High Cholesterol, Hypertension Neurological: Yes Stroke Sexually Transmitted Disease: No HIV/AIDS: No Genitourinary: No Renal Failure Gastrointestinal: No (dysphasia) Gastroesophageal Reflux Musculoskeletal: Yes (right-sided weakness -CVA) Endocrine: No Diabetes, Non-Insulin dep HEENT: No Cancer: No Did You Recieve Any Treatments: No Psychosocial: Yes Depression Integumentary: No Family Medical History No Pertinent Family Hx Physical Exam Vital Signs Vital Signs - First Documented 02/01/19 21:51 Temp 97.2 Pulse 58 Resp 17 B/P (MAP) 111/56 (74) Pulse Ox 95 O2 Delivery Nasal Cannula O2 Flow Rate 3.00 Capillary Refill : Height, Weight, BMI Height: 5'11.00" Weight: 240lbs. 0.0oz. 108.890842uz; 28.3 BMI Method:Estimated General Appearance: WD/WN, no apparent distress HEENT: PERRL/EOMI, normal ENT inspection, TMs normal, pharynx normal Neck: full range of motion, normal inspection Respiratory: chest non-tender, lungs clear, normal breath sounds, no respiratory distress, no accessory muscle use Cardiovascular: normal peripheral pulses, regular rate, rhythm, other (trace bilateral pedal edema) Peripheral Pulses: 2+ Dorsalis Pedis (R), 2+ Left Dors-Pedis (L), 2+ Radial Pulses (R), 2+ Radial Pulses (L) Gastrointestinal: normal bowel sounds, non tender, soft Neurologic/Psychiatric: alert, other (postictal, answers by nodding head yes or no. Residual right sided upper and lower extremity weakness) Crainal Nerves: normal hearing, abnormal speech (nonverbal can only ground) Skin: normal color, warm/dry Stroke Stroke Thrombolytic Exclusion Age 18 or Over: Yes Intracranial Neoplasm/Aneurysm: No Focused Exam Lactate Level 02/01/19 22:20: Lactic Acid Level 3.15*H Lactic Acid Level Laboratory Tests Test 02/01/19 22:20 Lactic Acid Level 3.15 MMOL/L (0.50-2.00) *H Progress/Results/Core Measures Results/Orders Lab Results Laboratory Tests Test 02/01/19 11:05 02/01/19 21:58 02/01/19 22:20 02/01/19 22:30 Range/Units White Blood Count 3.6 L 4.3-11.0 10^3/uL Red Blood Count 4.40 4.35-5.85 10^6/uL Hemoglobin 10.7 L 13.3-17.7 G/DL Hematocrit 33 L 40-54 % Mean Corpuscular Volume 75 L 80-99 FL Mean Corpuscular Hemoglobin 24 L 25-34 PG Mean Corpuscular Hemoglobin Concent 33 32-36 G/DL Red Cell Distribution Width 18.6 H 10.0-14.5 % Platelet Count 215 130-400 10^3/uL Mean Platelet Volume 10.5 H 7.4-10.4 FL Neutrophils (%) (Auto) 38 L 42-75 % Lymphocytes (%) (Auto) 40 12-44 % Monocytes (%) (Auto) 19 H 0-12 % Eosinophils (%) (Auto) 2 0-10 % Basophils (%) (Auto) 0 0-10 % Neutrophils # (Auto) 1.4 L 1.8-7.8 X 10^3 Lymphocytes # (Auto) 1.4 1.0-4.0 X 10^3 Monocytes # (Auto) 0.7 0.0-1.0 X 10^3 Eosinophils # (Auto) 0.1 0.0-0.3 10^3/uL Basophils # (Auto) 0.0 0.0-0.1 10^3/uL Neutrophils % (Manual) 34 % Lymphocytes % (Manual) 45 % Monocytes % (Manual) 21 % Blood Morphology Comment NORMAL Sodium Level 138 135-145 MMOL/L Potassium Level 4.1 3.6-5.0 MMOL/L Chloride Level 109 H 98-107 MMOL/L Carbon Dioxide Level 18 L 21-32 MMOL/L Anion Gap 11 5-14 MMOL/L Blood Urea Nitrogen 11 7-18 MG/DL Creatinine 1.50 H 0.60-1.30 MG/DL Estimat Glomerular Filtration Rate 58 BUN/Creatinine Ratio 7 Glucose Level 145 H 70-105 MG/DL Calcium Level 8.7 8.5-10.1 MG/DL Corrected Calcium 9.1 8.5-10.1 MG/DL Magnesium Level 1.9 1.8-2.4 MG/DL Total Bilirubin 0.6 0.1-1.0 MG/DL Aspartate Amino Transf (AST/SGOT) 21 5-34 U/L Alanine Aminotransferase (ALT/SGPT) 17 0-55 U/L Alkaline Phosphatase 91 40-136 U/L Troponin I 0.052 H <0.028 NG/ML C-Reactive Protein High Sensitivity 1.49 H 0.00-0.50 MG/DL B-Type Natriuretic Peptide 969.5 H <100.0 PG/ML Total Protein 8.4 H 6.4-8.2 GM/DL Albumin 3.5 3.2-4.5 GM/DL Lactic Acid Level 3.15 *H 0.50-2.00 MMOL/L Blood Gas Puncture Site RIGHT RADIAL Blood Gas Patient Temperature 97.2 Arterial Blood pH 7.38 7.37-7.43 Arterial Blood Partial Pressure CO2 32 L 35-45 MMHG Arterial Blood Partial Pressure O2 93 79-93 MMHG Arterial Blood HCO3 19 L 23-27 MMOL/L Arterial Blood Total CO2 19.5 L 21.0-31.0 MMOL/L Arterial Blood Oxygen Saturation 98 94-100 % Arterial Blood Base Excess -5.8 L -2.5-2.5 MMOL/L [place] Test POSITIVE Blood Gas Ventilator Setting NO Blood Gas Inspired Oxygen 3 My Orders Orders - CAPO RAMÍREZ Chest 1 View, Ap/Pa Only (02/01/19 21:57) Arterial Blood Gas (02/01/19 21:57) BNP (02/01/19 21:57) Cbc With Automated Diff (02/01/19 21:57) Comprehensive Metabolic Panel (02/01/19 21:57) Hs C Reactive Protein (02/01/19 21:57) Magnesium (02/01/19 21:57) Troponin I (02/01/19 21:57) Ua Culture If Indicated (02/01/19 21:57) Blood Culture (02/01/19 21:57) Sputum Culture (02/01/19 21:57) Ed Iv/Invasive Line Start (02/01/19 21:57) Ns Iv 1000 Ml (Sodium Chloride 0.9%) (02/01/19 21:57) Ns Iv 1000 Ml (Sodium Chloride 0.9%) (02/01/19 21:57) Ekg Tracing (02/01/19 21:57) Continuous Ekg Monitoring (02/01/19 21:57) Lactic Acid Analyzer (02/01/19 21:57) Manual Differential (02/01/19 21:58) Arterial Blood Draw (02/01/19 ) Apixaban Tablet (Eliquis Tablet) (02/01/19 23:15) Aspirin Chewable Tablet (Baby Aspirin Ch (02/01/19 23:15) Furosemide Injection (Lasix Injection) (02/01/19 23:15) Medications Given in ED Current Medications Medications Dose Ordered Sig/Ulices Route Start Time Stop Time Status Last Admin Dose Admin Apixaban 5 mg ONCE ONCE PO 02/01/19 23:15 02/01/19 23:16 DC 02/01/19 23:15 5 MG Aspirin 324 mg ONCE ONCE PO 02/01/19 23:15 02/01/19 23:16 DC 02/01/19 23:15 324 MG Sodium Chloride 1,000 ml @ 0 mls/hr Q0M ONCE IV 02/01/19 21:57 02/01/19 22:03 DC 02/01/19 22:07 0 MLS/HR Vital Signs/I&O 02/01/19 21:51 Temp 97.2 Pulse 58 Resp 17 B/P (MAP) 111/56 (74) Pulse Ox 95 O2 Delivery Nasal Cannula O2 Flow Rate 3.00 Progress Progress Note : Time: 23:08 Progress Note Patient was indicating some right arm pain with no evidence of acute trauma e xternally so we obtain a troponin and EKG for possible atypical coronary syndrome. We will also obtain a chest x-ray which demonstrated pulmonary vasculature congestion. He only has very mild edema but his BNP is elevated at 900. His white count is significantly low at 3.6 however he's had no fever since she's been here so I suspect CRP is not elevated and his total examination is more consistent with a CHF exacerbation. This may have been what triggered his seizures today. With his elevation of 0.05 trend this out overnight. We will seek an observation stay. Initial ECG Impression Date: Feb 01, 2019 Initial ECG Impression Time: 22:36 Initial ECG Rate: 55 Initial ECG Rhythm: A Fib/Flutter Initial ECG Intervals: QT (483) Initial ECG Impression: Atrial Fibrillation Initial ECG Comparisson: Unchanged Comment No ST elevation or depression. Atrial fibrillation. Diagnostic Imaging Diagonstic Imaging: Xray Plain Films/CT/US/NM/MRI: chest (1v) Comments Enlarged cardiac shadow. Pulmonary congestion. Reviewed: Reviewed by Me Departure Communication (Admissions) Time/Spoke to Admitting Phy: 23:15 Discussed case lab EKG imaging findings with Dr. Barfield and she agrees to observe the patient from the troponins and give Lasix. Time/Spoke to Consulting Phy: 23:10 Discussed case lab EKG imaging findings with Dr. Pizarro and he would agree with an observation stay to trend the troponin and Lasix. Impression Primary Impression: Elevated troponin I level Additional Impressions: Seizures Pulmonary vascular congestion Disposition: ADMITTED INPATIENT Condition: Stable Admissions Decision to Admit Reason: Admit from ER (General) Decision to Admit/Date: Feb 01, 2019 Time/Decision to Admit Time: 23:00 Departure-Patient Inst. Referrals: [facility] (PCP/Family) Primary Care Physician CAPO RAMÍREZ Feb 01, 2019 22:04
[2019-02-01 22:09] LABS: BASOPHILS % (AUTO) 0 % (0-10); EOSINOPHILS # (AUTO) 0.1 10^3/uL (0.0-0.3); EOSINOPHILS % (AUTO) 2 % (0-10); HEMATOCRIT 33 % (40-54); HEMOGLOBIN 10.7 G/DL (13.3-17.7); LYMPHOCYTES # (AUTO) 1.4 X 10^3 (1.0-4.0); LYMPHOCYTES % (AUTO) 40 % (12-44); MEAN CORPUSCULAR HEMOGLOBIN 24 PG (25-34); MEAN CORPUSCULAR HGB CONC 33 G/DL (32-36); MEAN CORPUSCULAR VOLUME 75 FL (80-99); MEAN PLATELET VOLUME 10.5 FL (7.4-10.4); MONOCYTES # (AUTO) 0.7 X 10^3 (0.0-1.0); MONOCYTES % (AUTO) 19 % (0-12); NEUTROPHILS # (AUTO) 1.4 X 10^3 (1.8-7.8); NEUTROPHILS % (AUTO) 38 % (42-75); PLATELET COUNT 215 10^3/uL (130-400); RED CELL DISTRIBUTION WIDTH 18.6 % (10.0-14.5); WHITE BLOOD COUNT 3.6 10^3/uL (4.3-11.0)
[2019-02-01 22:23] LABS: ALBUMIN 3.5 GM/DL (3.2-4.5); BILIRUBIN,TOTAL 0.6 MG/DL (0.1-1.0); CALCIUM 8.7 MG/DL (8.5-10.1); CREATININE SERUM 1.5 MG/DL (0.60-1.30); MAGNESIUM 1.9 MG/DL (1.8-2.4); POTASSIUM 4.1 MMOL/L (3.6-5.0); TOTAL PROTEIN 8.4 GM/DL (6.4-8.2)
[2019-02-01 22:40] LABS: ABG BASE EXCESS -5.8 MMOL/L (-2.5-2.5); ABG OXYGEN SATURATION 98 % (94-100); ABG PCO2 32 MMHG (35-45); ABG PH 7.38 (7.37-7.43); ABG PO2 93 MMHG (79-93); ABG TCO2 19.5 MMOL/L (21.0-31.0); ALLENS TEST POSITIVE; INSPIRED O2 3; PATIENT TEMP 97.2; VENTILATOR NO
[2019-02-01 22:40] LABS: LYMPHOCYTES % (MANUAL) 45 %; MONOCYTES % (MANUAL) 21 %; NEUTROPHILS % (MANUAL) 34 %
[2019-02-01 22:41] LABS: RBC MORPH NORMAL
[2019-02-01 23:11] LABS: CLARITY,URINE SLIGHTLY CLOUDY; COLOR,URINE AMBER; GLUCOSE, URINE (UA) NEGATIVE (NEGATIVE); KETONES,URINE 1+ (NEGATIVE); LEUKOCYTE ESTERASE ,URINE 1+ (NEGATIVE); NITRITE,URINE NEGATIVE (NEGATIVE); PH,URINE 5 (5-9); PROTEIN,URINE 3+ (NEGATIVE); UROBILINOGEN,URINE 4 MG/DL (NORMAL)
[2019-02-01] MEDS ORDERED: APIXABAN 5 MG (ELIQUIS) TABLET PO ONE (23:15)
[2019-02-01] MEDS ORDERED: FUROSEMIDE 40 MG/4 ML INJ (LASIX) IVP ONE (23:15)
[2019-02-01] MEDS ORDERED: ASPIRIN 81 MG CHEW (CHILDREN'S ASA) PO ONE (23:15)
[2019-02-01 23:27] LABS: BACTERIA,URINE FEW /HPF; RBC,URINE 0-2 /HPF; SQUAMOUS EPITHELIAL CELL,UR 0-2 /HPF; URINE OTHER MOD SPERM /HPF
[2019-02-01 23:55] VITALS: BP 116/82
--- NOTE | 2019-02-01 23:55 | NUR ---
MELODY LAMB Zahraa admitted to room CU2-1, with an admitting diagnosis of elevated troponin, pulmonary congestion and seizures on 02/01/19 from ER via min[facility], accompanied by ed staff. MELODY LAMB introduced to surroundings, call light, bed controls, phone, TV, temperature control, lights, meal times, smoking policy, visitor policy, side rail policy, bathrooms and showers. Patient Rights given to patient in the handbook. MELODY LAMB verbalizes understanding that [facility] is not responsible for the loss or damage to any personal effects or valuables that are kept in the patients posession during their hospitalization. Patient Care Plans were discussed with the pt. MELODY LAMB verbalizes understanding of Interdisciplinary Patient Education. Patient and/or family were informed about the Rapid Response Team and its purpose.
[2019-02-02] VITALS (11 sets, daily range): BP systolic 113–146; BP diastolic 76–117
[2019-02-02] MEDS ORDERED: LORazepam INJ 2 MG/ML (ATIVAN) VIAL IV PRN ×2 (02:30)
[2019-02-02] MEDS ORDERED: ONDANSETRON 4 MG/2 ML (SDV) Z0FRAN IV PRN (02:30)
[2019-02-02] MEDS ORDERED: ANTACID SUSP 30 ML UDC (MYLANTA) PO PRN (02:30)
[2019-02-02] MEDS: FUROSEMIDE 40 MG/4 ML INJ (LASIX) IV SCH ×2 (06:03→16:40)
[2019-02-02] MEDS: CARVEDILOL 12.5 MG (COREG) TABLET PO SCH ×2 (06:03→16:40)
--- NOTE | 2019-02-02 07:07 | Diagnostic Imaging Report ---
Indication: Seizure. Comparison made with prior examination from 11/14/2018. Findings: There is cardiomegaly. There is moderate venous congestion. There is no pleural effusion or pneumothorax. The mediastinum is unremarkable. Impression: Cardiomegaly and moderate central pulmonary venous congestion. Dictated by: Dictated on workstation # [id number]
[2019-02-02 07:12] LABS: HEMOGLOBIN 10.8 G/DL (13.3-17.7); MEAN PLATELET VOLUME 10.3 FL (7.4-10.4); RED CELL DISTRIBUTION WIDTH 18.7 % (10.0-14.5); WHITE BLOOD COUNT 9.4 10^3/uL (4.3-11.0)
[2019-02-02 07:32] LABS: ALANINE AMINOTRANSFERASE 24 U/L (0-55); ALBUMIN 3.9 GM/DL (3.2-4.5); ALKALINE PHOSPHATASE 103 U/L (40-136); BILIRUBIN,TOTAL 0.7 MG/DL (0.1-1.0); BUN/CREATININE RATIO 9; CALCIUM 8.7 MG/DL (8.5-10.1); CARBON DIOXIDE 21 MMOL/L (21-32); CHLORIDE 106 MMOL/L (98-107); CREATININE SERUM 1.37 MG/DL (0.60-1.30); GFR ESTIMATED > 60; GLUCOSE 131 MG/DL (70-105); POTASSIUM 3.8 MMOL/L (3.6-5.0); SODIUM 137 MMOL/L (135-145); TOTAL PROTEIN 9.1 GM/DL (6.4-8.2)
[2019-02-02 08:22] LABS: BILIRUBIN,URINE 1+ (NEGATIVE)
[2019-02-02] MEDS ORDERED: KCL 20 MEQ TAB (K-DUR) PO SCH (09:00)
[2019-02-02] MEDS ORDERED: AMIODARONE 200 MG (CORDARONE) TAB PO SCH (09:00)
[2019-02-02] MEDS ORDERED: APIXABAN 5 MG (ELIQUIS) TABLET PO SCH (09:00)
[2019-02-02] MEDS ORDERED: DILTIAZEM 60 MG (CARDIZEM) TAB PO SCH (09:00)
[2019-02-02] MEDS ORDERED: LEVETIRACETAM 500 MG (KEPPRA) TAB PO SCH ×2 (09:00→21:00)
[2019-02-02] MEDS: ASPIRIN E.C. 81 MG (ECOTRIN) TAB PO SCH (09:14)
[2019-02-02] MEDS: FLUoxetine HCL 20 MG (PROzac) CAP PO SCH (09:15)
[2019-02-02] MEDS: LINAGLIPTIN (TRADJENTA) 5 MG TABLET PO SCH (09:16)
--- NOTE | 2019-02-02 10:03 | Consultation-Cardiology ---
HPI-Cardiology Cardiology Consultation Date of Consultation 02/02/19 Date of Admission Time Seen by Provider: 09:58 Indication: elevated troponin level HPI 58 years old gentleman with history of CVA, failed thrombectomy, paroxysmal atrial fibrillation with multiple cardioversion. Severe cardiomyopathy with reported ejection fraction 20 percent, history of seizure disorder, patient had 2 short seizure activities yesterday responded and returned quickly, he is answering by yes or no only, has residual weakness of his right side. Noted to have elevated troponin level. Denied any chest pain, no palpitation. He had a stress test done in October 2018 showed severe cardiomyopathy with total infarction of the inferior wall and questionable ischemia, recommended cardiac catheterization but patient refused and requested to do it with Dr. Armenta Home Medications & Allergies Allergies: Coded Allergies: No Known Drug Allergies (Unverified , 01/16/17) Home Medication List Reviewed: Yes [id number] Hx Patient Social History Marital Status: single Employed/Student: unemployed Alcohol Use: Denies Use Recreational Drug Use: Yes Drug of Choice: MJ Smoking Status: Current Everyday Smoker Type Used: Cigarettes 2nd Hand Smoke Exposure: Yes Recent Foreign Travel: No Recent Infectious Disease Expo: No Recent Hopitalizations: No Immunizations Up To Date Tetanus Booster (TDap): Unknown Date of Pneumonia Vaccine: May 09, 2017 Date of Influenza Vaccine: May 09, 2017 Past Medical History discussed below Family Medical History Significant Family History: No Pertinent Family Hx Family Medical Hx noncontributory Review of Systems-General Review of Systems Constitutional: see HPI (review of symptoms are limited secondary to the patient only able to grunt and occasionally nod his head yes or no. He is also postictal.); No fever; malaise, weakness EENTM: see HPI, no symptoms reported Respiratory: see HPI, cough; No dyspnea on exertion, No hemoptysis, No orthopnea, No phlegm, No short of breath, No stridor, No wheezing, No other Cardiovascular: see HPI; No chest pain, No palpitations; syncope (questionable seizure activity) Gastrointestinal: no symptoms reported; No abdominal pain, No diarrhea, No dysphagia Genitourinary: see HPI; No discharge, No dysuria Musculoskeletal: see HPI, other (right-sided weakness) Skin: see HPI Psychiatric/Neurological: See HPI Reviewed Test Results Reviewed Test Results Lab Laboratory Tests Test 02/01/19 11:05 02/01/19 21:58 02/01/19 22:20 02/01/19 22:30 Range/Units Urine Color DANIELITO H Urine Clarity SLIGHTLY CLOUDY Urine pH 5 5-9 Urine Specific [place] 1.025 H 1.016-1.022 Urine Protein 3+ H NEGATIVE Urine Glucose (UA) NEGATIVE NEGATIVE Urine Ketones 1+ H NEGATIVE Urine Nitrite NEGATIVE NEGATIVE Urine Bilirubin 1+ H NEGATIVE Urine Urobilinogen 4 H NORMAL MG/DL Urine Leukocyte Esterase 1+ H NEGATIVE Urine RBC (Auto) 1+ H NEGATIVE Urine RBC 0-2 /HPF Urine WBC 2-5 /HPF Urine Squamous Epithelial Cells 0-2 /HPF Urine Crystals NONE /LPF Urine Bacteria FEW H /HPF Urine Casts NONE /LPF Urine Mucus NEGATIVE /LPF Urine Other MOD SPERM H /HPF Urine Culture Indicated NO White Blood Count 3.6 L 4.3-11.0 10^3/uL Red Blood Count 4.40 4.35-5.85 10^6/uL Hemoglobin 10.7 L 13.3-17.7 G/DL Hematocrit 33 L 40-54 % Mean Corpuscular Volume 75 L 80-99 FL Mean Corpuscular Hemoglobin 24 L 25-34 PG Mean Corpuscular Hemoglobin Concent 33 32-36 G/DL Red Cell Distribution Width 18.6 H 10.0-14.5 % Platelet Count 215 130-400 10^3/uL Mean Platelet Volume 10.5 H 7.4-10.4 FL Neutrophils (%) (Auto) 38 L 42-75 % Lymphocytes (%) (Auto) 40 12-44 % Monocytes (%) (Auto) 19 H 0-12 % Eosinophils (%) (Auto) 2 0-10 % Basophils (%) (Auto) 0 0-10 % Neutrophils # (Auto) 1.4 L 1.8-7.8 X 10^3 Lymphocytes # (Auto) 1.4 1.0-4.0 X 10^3 Monocytes # (Auto) 0.7 0.0-1.0 X 10^3 Eosinophils # (Auto) 0.1 0.0-0.3 10^3/uL Basophils # (Auto) 0.0 0.0-0.1 10^3/uL Neutrophils % (Manual) 34 % Lymphocytes % (Manual) 45 % Monocytes % (Manual) 21 % Blood Morphology Comment NORMAL Sodium Level 138 135-145 MMOL/L Potassium Level 4.1 3.6-5.0 MMOL/L Chloride Level 109 H 98-107 MMOL/L Carbon Dioxide Level 18 L 21-32 MMOL/L Anion Gap 11 5-14 MMOL/L Blood Urea Nitrogen 11 7-18 MG/DL Creatinine 1.50 H 0.60-1.30 MG/DL Estimat Glomerular Filtration Rate 58 BUN/Creatinine Ratio 7 Glucose Level 145 H 70-105 MG/DL Calcium Level 8.7 8.5-10.1 MG/DL Corrected Calcium 9.1 8.5-10.1 MG/DL Magnesium Level 1.9 1.8-2.4 MG/DL Total Bilirubin 0.6 0.1-1.0 MG/DL Aspartate Amino Transf (AST/SGOT) 21 5-34 U/L Alanine Aminotransferase (ALT/SGPT) 17 0-55 U/L Alkaline Phosphatase 91 40-136 U/L Troponin I 0.052 H <0.028 NG/ML C-Reactive Protein High Sensitivity 1.49 H 0.00-0.50 MG/DL B-Type Natriuretic Peptide 969.5 H <100.0 PG/ML Total Protein 8.4 H 6.4-8.2 GM/DL Albumin 3.5 3.2-4.5 GM/DL Lactic Acid Level 3.15 *H 0.50-2.00 MMOL/L Blood Gas Puncture Site RIGHT RADIAL Blood Gas Patient Temperature 97.2 Arterial Blood pH 7.38 7.37-7.43 Arterial Blood Partial Pressure CO2 32 L 35-45 MMHG Arterial Blood Partial Pressure O2 93 79-93 MMHG Arterial Blood HCO3 19 L 23-27 MMOL/L Arterial Blood Total CO2 19.5 L 21.0-31.0 MMOL/L Arterial Blood Oxygen Saturation 98 94-100 % Arterial Blood Base Excess -5.8 L -2.5-2.5 MMOL/L [place] Test POSITIVE Blood Gas Ventilator Setting NO Blood Gas Inspired Oxygen 3 Test 02/02/19 07:04 Range/Units White Blood Count 9.4 4.3-11.0 10^3/uL Red Blood Count 4.42 4.35-5.85 10^6/uL Hemoglobin 10.8 L 13.3-17.7 G/DL Hematocrit 33 L 40-54 % Mean Corpuscular Volume 74 L 80-99 FL Mean Corpuscular Hemoglobin 24 L 25-34 PG Mean Corpuscular Hemoglobin Concent 33 32-36 G/DL Red Cell Distribution Width 18.7 H 10.0-14.5 % Platelet Count 210 130-400 10^3/uL Mean Platelet Volume 10.3 7.4-10.4 FL Sodium Level 137 135-145 MMOL/L Potassium Level 3.8 3.6-5.0 MMOL/L Chloride Level 106 98-107 MMOL/L Carbon Dioxide Level 21 21-32 MMOL/L Anion Gap 10 5-14 MMOL/L Blood Urea Nitrogen 12 7-18 MG/DL Creatinine 1.37 H 0.60-1.30 MG/DL Estimat Glomerular Filtration Rate > 60 BUN/Creatinine Ratio 9 Glucose Level 131 H 70-105 MG/DL Lactic Acid Level 1.48 0.50-2.00 MMOL/L Calcium Level 8.7 8.5-10.1 MG/DL Corrected Calcium 8.8 8.5-10.1 MG/DL Total Bilirubin 0.7 0.1-1.0 MG/DL Aspartate Amino Transf (AST/SGOT) 29 5-34 U/L Alanine Aminotransferase (ALT/SGPT) 24 0-55 U/L Alkaline Phosphatase 103 40-136 U/L Troponin I 0.049 H <0.028 NG/ML Total Protein 9.1 H 6.4-8.2 GM/DL Albumin 3.9 3.2-4.5 GM/DL Physical Exam Physical Exam Vital Signs Vital Signs - First Documented 02/01/19 21:51 Temp 97.2 Pulse 58 Resp 17 B/P (MAP) 111/56 (74) Pulse Ox 95 O2 Delivery Nasal Cannula O2 Flow Rate 3.00 Capillary Refill : Less Than 3 Seconds Height, Weight, BMI Height: 5'11.00" Weight: 223lbs. 6.0oz. 101.090258jy; 33.5 BMI Method:Estimated General Appearance: No Apparent Distress, WD/WN Eyes: Bilateral Eye Normal Inspection, Bilateral Eye PERRL, Bilateral Eye EOMI HEENT: PERRL/EOMI, TMs Normal, Normal ENT Inspection, Pharynx Normal, Moist Mucous Membranes Neck: Full Range of Motion, Normal Inspection, Non Tender, Supple, Carotid Bruit Respiratory: Chest Non Tender, Normal Breath Sounds, No Accessory Muscle Use, No Respiratory Distress Cardiovascular: No Edema, No JVD, Normal Peripheral Pulses, Systolic Murmur, Gallop/S3, Irregularly Irregular Gastrointestinal: Normal Bowel Sounds, No Organomegaly, No Pulsatile Mass, Non Tender, Soft Back: Normal Inspection, No CVA Tenderness, No Vertebral Tenderness Extremity: Normal Capillary Refill, Normal Inspection, No Pedal Edema, Other (right sided weakness) Neurologic/Psychiatric: Alert, Motor Weakness, Sensory Deficit Skin: Normal Color, Warm/Dry Lymphatic: No Adenopathy A/P-Cardiology Admission Diagnosis Syncope Coronary artery disease Congestive heart failure, chronic compensated left ventricular systolic dysfunction, ischemic cardiomyopathy Seizure Assessment/Plan Syncope with seizure activity. Patient has history of seizure disorder and maintained on Keppra, the episode was very short and recovered quickly occurred again, could be seizure activity, underlying malignant arrhythmia cannot be ruled out entirely especially with the severe cardiomyopathy and questionable coronary artery disease. Abnormal EKG with diffuse T-wave inversion, suggestive of ischemia. Continue to monitor troponin that appeared to be trending down. Evaluate echo, will discuss cardiac catheterization again with the patient and offered to him Coronary artery disease, had a stress test in [facility] in October 2018 and reported to have infarction of the inferior wall with emanuel-infarct ischemia, ejection fraction 20 percent, patient was offered cardiac catheterization. Refused the procedure and requested to have it done with Dr. Armenta Congestive heart failure, chronic compensated left ventricular systolic dysfunction, ejection fraction 20 percent, I will repeat 2-D echocardiogram, increased risk of sudden due to his severe cardiomyopathy. Paroxysmal atrial fibrillation, failed multiple cardioversion, currently on Cardizem, Coreg, Eliquis and amiodarone, continue to monitor History of CVA in December 2016, given TPA then transferred to , attempt for thrombectomy was not successful, treated with rehabilitation, has right hemiparesis. History of seizure disorder, had a seizure in March 2007. Managed by primary care physician Hypertension, maintained on Cardizem 120 twice daily and Coreg 25 twice daily, restart home medication monitor blood pressure Hyperlipidemia maintained on Lipitor. Diabetes mellitus, followed and managed by primary care physician Chronic kidney disease stage III, history of acute renal failure, continue to monitor renal function Claudication, JOSE was done in July 2017 and it was normal, continue to monitor History of borderline prolongation of QT interval. History of tobaccoism Clinical Quality Measures DVT/VTE Risk/Contraindication: Risk Factor Score Per Nursin RFS Level Per Nursing on Admit: 4+=Very High BASHIR MEDINA MD Feb 02, 2019 10:03
--- NOTE | 2019-02-02 10:40 | Diagnostic Imaging Report ---
Indication: Pulmonary congestion and elevated troponin. Comparison made with prior examination from 02/01/19. Findings: There is cardiomegaly. There is venous congestion. There is no pleural effusion or pneumothorax. The mediastinum is unremarkable. Impression: Cardiomegaly and moderate central pulmonary venous congestion. Dictated by: Dictated on workstation # [id number]
--- NOTE | 2019-02-02 10:46 | History & Physical-Hospitalist ---
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 Armenta at his request with recent ejection fraction of 20% who presented to the ER after multiple seizures. He was found to have slightly elevated troponin but EKG showed inverted T waves which is new and Dr. Pizarro is very concerned that the episodes could likely be ventricular tachycardia and not a seizure. He will have echocardiogram performed and he will undergo cardiac catheterization and he will be restarted on all of his home seizure medications. He sees Dr. Demarco neurology for seizures. His girlfriend lives with him. He had a catheter placed due to diuresis due to elevated BNP given IV Lasix. Source: patient, family, RN/MD, old records, caregiver Exam Limitations: no limitations Date Seen 02/02/19 Time Seen by a Provider: 10:15 Attending Physician Cici Loomis DO [facility] [place] Referring Physician Date of Admission Feb 01, 2019 at 23:31 Home Medications & Allergies Home Medications Reviewed patient Home Medication Reconciliation performed by pharmacy medication reconciliations cathodic protection technician and/or nursing. Patients Allergies have been reviewed. Allergies Allergies Coded Allergies No Known Drug Allergies (Unverified01/16/17) Past Qmujyvi-Pufvel-Vevcdp Hx Past Med/Social Hx: Reviewed Nursing Past Med/Soc Hx, Reviewed and Corrections made Patient Social History Marrital Status: cohabiting Employed/Student: unemployed Alcohol Use: Denies Use Recreational Drug Use: Yes Drug of Choice: MJ Smoking Status: Current Everyday Smoker Former Smoker, Quit: January 16, 2017 Type Used: Cigarettes 2nd Hand Smoke Exposure: Yes Recent Foreign Travel: No Contact w/other who traveled: No Recent Hopitalizations: No Recent Infectious Disease Expo: No Immunizations Up To Date Tetanus Booster (TDap): Unknown Date of Pneumonia Vaccine: May 09, 2017 Date of Influenza Vaccine: May 09, 2017 Seasonal Allergies Seasonal Allergies: No Past Medical History Currently Using CPAP: No Currently Using BIPAP: No Cardiac: Atrial Fibrillation, Cardiomyopathy, Coronary Artery Disease, High Cholesterol, Hypertension Neurological: Stroke Sexually Transmitted Disease: No HIV/AIDS: No Genitourinary: Renal Failure Gastrointestinal: Gastroesophageal Reflux Endocrine: Diabetes, Insulin dep, Diabetes, Non-Insulin dep Cancer: Melanoma Did You Recieve Any Treatments: No Psychosocial: Depression History of Blood Disorders: No Adverse Reaction to Blood Sharma: No Family History No Pertinent Family Hx Review of Systems Constitutional: see HPI Respiratory: dyspnea on exertion Cardiovascular: chest pain Gastrointestinal: no symptoms reported Genitourinary: no symptoms reported Musculoskeletal: no symptoms reported Skin: no symptoms reported Psychiatric/Neurological: Seizure All Other Systems Reviewed Negative Unless Noted: Yes Physical Exam Physical Exam Vital Signs Vital Signs - First Documented 02/01/19 21:51 Temp 97.2 Pulse 58 Resp 17 B/P (MAP) 111/56 (74) Pulse Ox 95 O2 Delivery Nasal Cannula O2 Flow Rate 3.00 Capillary Refill : Less Than 3 Seconds Height, Weight, BMI Height: 5'11.00" Weight: 223lbs. 6.0oz. 101.634012vp; 33.5 BMI Method:Estimated General Appearance: No Apparent Distress, WD/WN, Chronically ill Eyes: Right Eye Normal Inspection, Right Eye PERRL HEENT: PERRL/EOMI, Normal ENT Inspection, Pharynx Normal, Moist Mucous Membranes Neck: Full Range of Motion, Normal Inspection, Non Tender Respiratory: Chest Non Tender, Lungs Clear, Normal Breath Sounds, No Accessory Muscle Use, No Respiratory Distress Cardiovascular: Regular Rate, Rhythm, No Edema, No Gallop, No JVD, No Murmur, Normal Peripheral Pulses Gastrointestinal: Normal Bowel Sounds, No Organomegaly, No Pulsatile Mass, Non Tender, Soft Back: Normal Inspection, No CVA Tenderness, No Vertebral Tenderness Extremity: Normal Capillary Refill, Normal Inspection, Normal Range of Motion, Non Tender, No Calf Tenderness, No Pedal Edema Neurologic/Psychiatric: Alert, Oriented x3, Normal Mood/Affect, Facial Droop (right), Motor Weakness (right sided weakness) Skin: Normal Color, Warm/Dry Lymphatic: No Adenopathy Results Results/Procedures Labs Laboratory Tests 02/01/19 21:58 02/02/19 07:04 Patient resulted labs reviewed. Assessment/Plan Admission Diagnosis Assessment: Status epilepticus Elevated troponin Elevated BNP Cardiomyopathy ischemic type Probability of V. tach and not seizure last night Edema given IV Lasix catheter placed Prior stroke 3 years ago with residual right-sided hemiparesis Smoker Diabetes mellitus Plan: IV diuresis Echo Cardiac cath by Dr. Pizarro Admission Status: Inpatient Order (span 2 midnights) Reason for Inpatient Admission: Severe cad cardiomyopathy and seizures and prior CVA and possible V-tach Diagnosis/Problems Diagnosis/Problems (1) V tach Status: Acute (2) Cardiomyopathy Status: Chronic Qualifiers: Cardiomyopathy type: unspecified Qualified Codes: I42.9 - Cardiomyopathy, unspecified (3) History of CVA with residual deficit Status: Chronic (4) Right sided weakness Status: Chronic (5) Smoker Status: Chronic (6) Diabetes mellitus Status: Chronic Qualifiers: Diabetes mellitus type: type 2 Diabetes mellitus terminal operator insulin use: unspecified terminal operator insulin use status Diabetes mellitus complication status: with other specified complication Qualified Codes: E11.69 - Type 2 diabetes mellitus with other specified complication (7) Seizures Status: Chronic (8) Elevated troponin I level Status: Acute (9) Pulmonary vascular congestion Status: Acute Clinical Quality Measures DVT/VTE Risk/Contraindication: Risk Factor Score Per Nursin RFS Level Per Nursing on Admit: 4+=Very High CICI LOOMIS DO Feb 02, 2019 10:46
[2019-02-02] MEDS: NS IV 1000 ML 1,000 ML IV SCH ×2 (14:40→20:39)
[2019-02-02] MEDS ORDERED: PATIENT MAY USE OWN MEDS, ALL MC SCH (16:45)
[2019-02-02] MEDS: CARVEDILOL 25 MG PO SCH (17:25)
[2019-02-02] MEDS: KCL 10 MEQ TAB (MICRO K) PO SCH (17:25)
[2019-02-02] MEDS ORDERED: ALPRAZolam 0.25 MG (XANAX) TAB PO PRN (19:00)
[2019-02-02] MEDS ORDERED: DOCUSATE SODIUM 100 MG (COLACE) CAP PO PRN (19:00)
[2019-02-02] MEDS ORDERED: ONDANSETRON 4 MG/2 ML (SDV) Z0FRAN IVP PRN (19:00)
[2019-02-02] MEDS ORDERED: MELATONIN 3 MG TABLET PO PRN (19:00)
[2019-02-02] MEDS ORDERED: CALCIUM CARBONATE 500 MG (TUMS) TAB.CHEW PO PRN (19:00)
[2019-02-02] MEDS ORDERED: ACETAMINOPHEN 500 MG TAB (TYLENOL) PO PRN (19:00)
[2019-02-02] MEDS ORDERED: diphenhydrAMINE 25 MG TAB (BENADRYL) PO PRN (19:00)
[2019-02-02] MEDS ORDERED: HYDROcodone/APAP 5 MG/325 MG (LORTAB) TAB PO PRN (19:00)
[2019-02-02] MEDS: LEVETIRACETAM 1,000 MG (KEPPRA) TABLET PO SCH (20:46)
[2019-02-02] MEDS: DILTIAZEM 120 MG PO SCH (20:47)
[2019-02-02] MEDS: AMIODARONE 200 MG (CORDARONE) TAB PO SCH (20:48)
[2019-02-02] MEDS: LEVETIRACETAM 500 MG (KEPPRA) TAB PO SCH (20:48)
[2019-02-02] MEDS: SENNA W/DOCUSATE (SENOKOT S) TABLET PO SCH (20:51)
--- NOTE | 2019-02-02 20:52 | NUR ---
this rn informed pt that he has stool softner order. pt shook his head no. this rn asked pt if he would like them pt stated "no"
[2019-02-02] MEDS ORDERED: NON-FORMULARY MEDICATION 1 EA EA (Diltiazem HCl 120 MG) PO SCH (21:00)
[2019-02-02] MEDS ORDERED: NON-FORMULARY MEDICATION 1 EA EA (Levetiracetam 500 MG) PO SCH (21:00)
[2019-02-02] MEDS ORDERED: ATORVASTATIN 40 MG (LIPITOR) TABLET PO SCH (21:00)
[2019-02-02] MEDS ORDERED: NON-FORMULARY MEDICATION 1 EA EA (Carvedilol 25 MG) PO SCH (21:00)
[2019-02-02] MEDS ORDERED: LEVETIRACETAM 1,000 MG (KEPPRA) TABLET PO SCH (21:00)
--- NOTE | 2019-02-02 21:07 | NUR ---
this rn contacted dr. goldberg via telephone to verify pt keppra orders-pt is to have keppra 1000mg bid po & keppra 500mg bid po to total dose of keppra 1500mg BID PO
[2019-02-03] VITALS: BP_SYST 130; BP_DIAS 80; BP_DIAS 95
[2019-02-03] MEDS: NS IV 1000 ML 1,000 ML IV SCH (00:58)
[2019-02-03 04:40] VITALS: BP 138/78
[2019-02-03 05:11] LABS: HEMOGLOBIN 10.9 G/DL (13.3-17.7); MEAN PLATELET VOLUME 10.2 FL (7.4-10.4); RED CELL DISTRIBUTION WIDTH 19.1 % (10.0-14.5); WHITE BLOOD COUNT 5.9 10^3/uL (4.3-11.0)
[2019-02-03 05:26] LABS: ALANINE AMINOTRANSFERASE 25 U/L (0-55); ALBUMIN 3.6 GM/DL (3.2-4.5); ALKALINE PHOSPHATASE 93 U/L (40-136); BILIRUBIN,TOTAL 0.6 MG/DL (0.1-1.0); BUN/CREATININE RATIO 9; CALCIUM 8.8 MG/DL (8.5-10.1); CARBON DIOXIDE 22 MMOL/L (21-32); CHLORIDE 107 MMOL/L (98-107); CREATININE SERUM 1.32 MG/DL (0.60-1.30); GFR ESTIMATED > 60; GLUCOSE 99 MG/DL (70-105); POTASSIUM 3.6 MMOL/L (3.6-5.0); SODIUM 139 MMOL/L (135-145); TOTAL PROTEIN 8.9 GM/DL (6.4-8.2)
--- NOTE | 2019-02-03 06:03 | Pulmonary Consultation ---
History of Present Illness History of Present Illness Date of Consultation 02/03/19 05:55 Time Seen by Provider: 05:55 Date of Admission Reason for Visit: elevated troponin level History of Present Illness 58yo with hx of CVA and residual right sided hemiparesis, ischemic cardiomyopathy EF 20% presented to ED after syncope, multiple seizures over the weekend. Pt had EKG changes and pt refused cardiac cath. Pt was restarted on home antiseizure meds. Pt is Known to Dr. Demarco neurologist. I am consulted for pulmonary management. Allergies and Home Medications Allergies Coded Allergies: No Known Drug Allergies (Unverified , 01/16/17) Home Medications Acetaminophen 325 Mg Tablet, 650 MG PO Q4H PRN for PAIN-MILD, (Reported) TAKES 2 (325MG) TABLETS Apixaban 5 Mg Tablet, 5 MG PO BID, (Reported) Aspirin 81 Mg Tablet.dr, 81 MG PO DAILY, (Reported) Atorvastatin Calcium 20 Mg Tablet, 20 MG PO DAILY, (Reported) Carvedilol 25 Mg Tablet, 25 MG PO BID, (Reported) Diltiazem HCl 120 Mg Tablet, 120 MG PO BID, (Reported) Ergocalciferol (Vitamin D2) 50,000 Unit Capsule, 50,000 UNIT PO WEEK, (Reported) Ferrous Sulfate 325 Mg Tablet, 650 MG PO DAILY, (Reported) Fluoxetine HCl 40 Mg Capsule, 40 MG PO DAILY, (Reported) Levetiracetam 1,000 Mg Tablet, 1,000 MG PO BID, (Reported) Levetiracetam 500 Mg Tablet, 500 MG PO BID, (Reported) Multivitamin with Minerals 1 Each Tablet, 1 TAB PO DAILY, (Reported) Polyethylene Glycol 3350 255 Gm Powder, 17 GM PO DAILY PRN for CONSTIPATION-2ND LINE, (Reported) Potassium Chloride 10 Meq Tab.er.prt, 10 MEQ PO DAILY, (Reported) Sitagliptin Phosphate 100 Mg Tablet, 100 MG PO DAILY, (Reported) Past Ydqdwnn-Ugxsti-Juywbq Hx Past Med/Social Hx: Reviewed Nursing Past Med/Soc Hx, Reviewed and Corrections made Patient Social History Alcohol Use: Denies Use Recreational Drug Use: Yes Drug of Choice: MJ Smoking Status: Current Everyday Smoker Type Used: Cigarettes Former Smoker, Quit: January 16, 2017 2nd Hand Smoke Exposure: Yes Recent Foreign Travel: No Contact w/Someone Who Travel: No Recent Infectious Disease Expo: No Recent Hopitalizations: No Immunizations Up To Date Tetanus Booster (TDap): Unknown Date of Pneumonia Vaccine: May 09, 2017 Date of Influenza Vaccine: May 09, 2017 Seasonal Allergies Seasonal Allergies: No Past Medical History Surgeries: No (lower back bone biopsy, neg heart cath) Respiratory: No Currently Using CPAP: No Currently Using BIPAP: No Cardiac: Yes Atrial Fibrillation, Cardiomyopathy, Coronary Artery Disease, High Cholesterol, Hypertension Neurological: Yes Stroke Sexually Transmitted Disease: No HIV/AIDS: No Genitourinary: No Renal Failure Gastrointestinal: No (dysphasia) Gastroesophageal Reflux Musculoskeletal: Yes (right-sided weakness -CVA) Endocrine: No Diabetes, Insulin dep, Diabetes, Non-Insulin dep HEENT: No Cancer: Yes Melanoma Did You Recieve Any Treatments: No Psychosocial: Yes Depression Integumentary: No Blood Disorders: No Adverse Reaction/Blood Tranf: No Family Medical History No Pertinent Family Hx Review of Systems Time Seen by Provider: 06:04 Constitutional: Weakness, Malaise; No: Fever, Chills, Sweats, Other Eyes: No: Pain, Vision change, Conjunctivae inflammation, Eyelid inflammation, Other, Redness ENT: No: Ear pain, Ear discharge, Nose pain, Nose discharge, Nose congestion, Mouth pain, Mouth swelling, Throat pain, Throat swelling, Other Respiratory: Cough, Dry, Shortness of breath, SOB with excertion Cardiovascular: Chest Pain, Palpitations, Orthopnea, Paroxysmal Noc. Dyspnea Gastrointestinal: No: Nausea, Vomiting, Diarrhea Neurological: Weakness, Incoordination, Confusion, Seizures Sepsis Event Evaluation Height, Weight, BMI Height: 5'11.00" Weight: 223lbs. 6.4oz. 101.970526cp; 33.5 BMI Method:Estimated Exam Exam Vital Signs Date Time Temp Pulse Resp B/P (MAP) Pulse Ox O2 Delivery O2 Flow Rate FiO2 02/03/19 04:40 97.0 63 14 138/78 (98) 98 Room Air 02/03/19 04:00 Room Air 02/03/19 01:00 60 02/03/19 00:00 Room Air 02/03/19 00:00 97.7 77 16 130/80 (97) 95 Room Air 02/02/19 21:00 Room Air 02/02/19 20:00 97 Room Air 02/02/19 20:00 97.6 02/02/19 20:00 95 11 130/95 (107) 95 Room Air 02/02/19 19:00 70 02/02/19 16:00 97.5 02/02/19 15:31 97 Room Air 02/02/19 13:00 63 02/02/19 12:00 66 16 115/76 (89) 99 Nasal Cannula 3.00 02/02/19 12:00 97.8 02/02/19 11:45 Nasal Cannula 3.00 02/02/19 09:33 Nasal Cannula 3.00 02/02/19 08:00 76 20 122/85 (97) 98 Nasal Cannula 3.00 02/02/19 08:00 Nasal Cannula 3.00 02/02/19 07:00 101 I & O 02/03/19 07:00 Intake Total 1755 ml Output Total 3675 ml Balance -1920 ml Height & Weight Height: 5'11.00" Weight: 223lbs. 6.4oz. 101.546617xk; 33.5 BMI Method:Estimated General Appearance: No Apparent Distress, WD/WN, Chronically ill HEENT: PERRL/EOMI, Normal ENT Inspection, Pharynx Normal, Moist Mucous Membr anes Neck: Full Range of Motion, Normal Inspection, Non Tender Respiratory: Chest Non Tender, Lungs Clear, Normal Breath Sounds, No Accessory Muscle Use, No Respiratory Distress Cardiovascular: Regular Rate, Rhythm, No Edema, No Gallop, No JVD, No Murmur, Normal Peripheral Pulses Capillary Refill: Less Than 3 Seconds Peripheral Pulses: 2+ Dorsalis Pedis (R), 2+ Left Dors-Pedis (L), 2+ Radial Pulses (R), 2+ Radial Pulses (L) Gastrointestinal: normal bowel sounds, non tender, soft Extremity: Normal Capillary Refill, Normal Inspection, Normal Range of Motion, Non Tender, No Calf Tenderness, No Pedal Edema Neurologic/Psychiatric: Alert, Oriented x3, Normal Mood/Affect, Facial Droop (right), Motor Weakness (right sided weakness) Skin: Normal Color, Warm/Dry Lymphatic: No Adenopathy Results Lab Laboratory Tests 02/01/19 21:58 02/02/19 07:04 02/03/19 04:50 Assessment/Plan Assessment/Plan S/p Syncope -Keppra CAD with CHF EF 20% -Pt refused cardiac cath Seizure hx Paroxysmal Afib - failed multiple cardioversions -Cardizem, Coreg, Eliquis -Amiodarone HX of CVA 12/2016 with right hemiparesis DM CKD III Hx of tobacco use -Currently on RA JOSS JIMENEZ DO Feb 03, 2019 06:03
[2019-02-03] MEDS: KCL 10 MEQ TAB (MICRO K) PO SCH (06:31)
[2019-02-03] MEDS: FUROSEMIDE 40 MG/4 ML INJ (LASIX) IV SCH (06:31)
[2019-02-03] MEDS: CARVEDILOL 25 MG PO SCH (06:31)
[2019-02-03] MEDS ORDERED: HEParin (CATH LAB) 2,000 ML IV ONE (07:41)
[2019-02-03] MEDS ORDERED: LIDOCAINE 1% INJ 20 ML 20 ML VIAL ONE ×2 (07:41→08:42)
[2019-02-03] MEDS ORDERED: MIDAZOLAM 5 MG/5 ML (VERSED) VIAL ONE (07:46)
[2019-02-03] MEDS ORDERED: fentaNYL INJECTION 100 MCG/2 ML AMP ONE (07:46)
--- NOTE | 2019-02-03 07:46 | Cardiology Progress Note ---
Subjective Date Seen by Provider: Feb 03, 2019 Time Seen by Provider: 07:44 Subjective/Events-last exam patient is laying down in bed responding by yes and no, denied any pain, no further syncope, no arrhythmia Review of Systems General: No Chills, No Night Sweats, No Fatigue, No Malaise, No Appetite, No Other HEENT: No Head Aches, No Visual Changes, No Eye Pain, No Ear Pain, No Dysphasia, No Sinus Congestion, No Post Nasal Drip, No Sore Throat, No Other Pulmonary: No Dyspnea, No Cough, No Pleuritic Chest Pain, No Other Cardiovascular: No: Chest Pain, Palpitations, Orthopnea, Paroxysmal Noc. Dyspnea, Edema, Lt Headedness, Other Focused Exam Lactate Level 02/01/19 22:20: Lactic Acid Level 3.15*H 02/02/19 07:04: Lactic Acid Level 1.48 Objective-Cardiology Exam Last Set of Vital Signs Vital Signs 02/03/19 02/03/19 04:40 07:00 Temp 97.0 Pulse 62 Resp 14 B/P (MAP) 138/78 (98) Pulse Ox 98 O2 Delivery Room Air Capillary Refill : Less Than 3 Seconds I&O Intake and Output 02/03/19 00:00 Intake Total 805 ml Output Total 4575 ml Balance -3770 ml Intake Oral 805 ml Output Urine Total 4575 ml Daily Weight Change No General: Alert, Oriented X3, Cooperative HEENT: Atraumatic, PERRLA Neck: Supple, No JVD, No Thyromegaly Lungs: Clear to Auscultation, Normal Air Movement Heart: Regular Rate, Normal S1, Normal S2, Other (S3 present) Abdomen: Normal Bowel Sounds, Soft, No Tenderness, No Hepatosplenomegaly, No Masses Extremities: No Clubbing, No Cyanosis, No Edema, Normal Pulses, No Tenderness/Swelling Skin: No Rashes, No Breakdown, No Significant Lesion Neuro: Other (history of CVA with residual right sided weakness) Psych/Mental Status: Mood NL Results Lab Laboratory Tests 02/03/19 04:50 A/P-Cardiology Admission Diagnosis Syncope Coronary artery disease Congestive heart failure, chronic compensated left ventricular systolic dysfunction, ischemic cardiomyopathy Seizure Assessment/Plan Syncope with seizure activity. Patient has history of seizure disorder and maintained on Keppra, the episode was very short and recovered quickly occurred again, could be seizure activity, underlying malignant arrhythmia cannot be ruled out entirely especially with the severe cardiomyopathy and questionable coronary artery disease. Abnormal EKG with diffuse T-wave inversion, suggestive of ischemia. Continue to monitor troponin that appeared to be trending down. planning for cardiac catheterization today Coronary artery disease, had a stress test in [facility] in October 2018 and reported to have infarction of the inferior wall with emanuel-infarct ischemia, ejection fraction 20 percent, planning for cardiac catheterization today Congestive heart failure, chronic compensated left ventricular systolic dysfunction, ejection fraction 20 percent, I will repeat 2-D echocardiogram, increased risk of sudden due to his severe cardiomyopathy. Paroxysmal atrial fibrillation, failed multiple cardioversion, currently on Cardizem, Coreg, Eliquis and amiodarone, continue to monitor History of CVA in December 2016, given TPA then transferred to , attempt for thrombectomy was not successful, treated with rehabilitation, has right hemiparesis. History of seizure disorder, had a seizure in March 2007. Managed by primary care physician Hypertension, maintained on Cardizem 120 twice daily and Coreg 25 twice daily, restart home medication monitor blood pressure Hyperlipidemia maintained on Lipitor. Diabetes mellitus, followed and managed by primary care physician Chronic kidney disease stage III, history of acute renal failure, continue to monitor renal function Claudication, JOSE was done in July 2017 and it was normal, continue to monitor History of borderline prolongation of QT interval. History of tobaccoism Clinical Quality Measures DVT/VTE Risk/Contraindication: Risk Factor Score Per Nursin RFS Level Per Nursing on Admit: 4+=Very High BASHIR MEDINA MD Feb 03, 2019 07:46
--- NOTE | 2019-02-03 07:48 | Cardiac Procedure Note-CS/ASA ---
Pre-Procedure Note Pre-Op Procedure Note H&P Reviewed The H&P was reviewed, patient examined and no changes noted. Date H&P Reviewed: Feb 03, 2019 Time H&P Reviewed: 07:48 Conscious Sedation Pre-Proced Time 07:48 ASA Score 3 For ASA 3 and 4: Consider anesthesia and medical clearance. Also, for patients with a history of failed moderate sedation consider anesthesia. Airway Lungs Heart ASA score ASA 1: a normal healthy patient ASA 2: a patient with a mild systemic disease (mid diabetes, controlled hypertension, obesity x ASA 3: a patient with a severe systemic disease that limits activity (angina, COPD, prior Myocardial infarction) ASA 4: a patient with an incapacitating disease that is a constant threat to life (CHF, renal failure) ASA 5: a moribund patient not expected to survive 24 hrs. (ruptured aneurysm) ASA 6: a declared brain- patient whose organs are being harvested. For emergent operations, add the letter E after the classification Mallampati Classification Grade 3 Sedation Plan Analgesia, Amnesia, Plan communicated to team members, Discussed options with patient/fam, Discussed risks with patient/fam The patient is an appropriate candidate to undergo the planned procedure, sedation, and anesthesia. The patient immediately re-assessed prior to indication. BASHIR MEDINA MD Feb 03, 2019 07:48
[2019-02-03] MEDS: FLUoxetine HCL 20 MG (PROzac) CAP PO SCH (07:51)
[2019-02-03] MEDS: SENNA W/DOCUSATE (SENOKOT S) TABLET PO SCH (07:52)
[2019-02-03] MEDS: LEVETIRACETAM 500 MG (KEPPRA) TAB PO SCH (07:52)
[2019-02-03] MEDS: LINAGLIPTIN (TRADJENTA) 5 MG TABLET PO SCH (07:52)
[2019-02-03] MEDS: ASPIRIN E.C. 81 MG (ECOTRIN) TAB PO SCH (07:52)
[2019-02-03] MEDS: DILTIAZEM 120 MG PO SCH (07:53)
[2019-02-03] MEDS: LEVETIRACETAM 1,000 MG (KEPPRA) TABLET PO SCH (07:53)
[2019-02-03] MEDS: AMIODARONE 200 MG (CORDARONE) TAB PO SCH (07:53)
[2019-02-03 07:58] VITALS: BP 153/106
[2019-02-03] MEDS ORDERED: NS IV 1000 ML 1,000 ML IV SCH ×2 (08:00→08:42)
--- NOTE | 2019-02-03 08:00 | NUR ---
PT LEFT FLOOR VIA BED W/ INCOME AUDITOR STAFF/S.O.
[2019-02-03 08:24] LABS: INR 1.4 (0.8-1.4); PROTHROMBIN TIME PATIENT 17.9 SEC (12.2-14.7)
[2019-02-03] MEDS ORDERED: PATIENT MAY USE OWN MEDS, ALL PO SCH (08:45)
--- NOTE | 2019-02-03 08:49 | Cardiac Cath Report ---
Cardiac Cath Report Physician (s)/Geospatial Analyst (s) Physician BASHIR MEDINA MD Pre-Procedure Diagnosis Pre-Procedure Diagnosis: atrial fibrillation, syncope, CHF Post-Procedure Note Procedure Start Date: Feb 03, 2019 Name of Procedure: Left heart catheterization Findings/Procedure Note PROCEDURE NOTE: 58 years old gentleman with history of CVA, severe cardiomyopathy and seizure disorder and syncope, had a seizure episode and admitted to the hospital, no post ictal period ejection fraction was 20 percent earlier this year and currently 35-40 percent, patient was offered a cardiac catheterization after having an abnormal stress test. After explaining the procedure to the patient and his caregiver, all pros and cons were explained, all questions were answered. The patient signed the consent and then he was placed on the cardiac catheterization laboratory. Groin was prepped SL fashion local anesthesia was used. Sheath placed in the right femoral artery. Hailee left catheter used accident the left system, I was unable to reach the right coronary system with the JR catheter, used Marciano catheter and angiogram was done. The Hailee right catheter was prolapsed into the left ventricular cavity, pressure was measured, no left ventriculogram was done to limit exposure to contrast At the end of the procedure the sheath was removed. Closure device was used FINDINGS: Hemodynamics LV 109/18, end-diastolic pressure of 18 Aorta 118/79 mean of 96 ANATOMY: Left Main is free of obstructive disease Left Anterior Descending has mild diffuse ectasia, no signal obstructive disease, slow flow in the LAD system Left Circumflex has mild diffuse ectasia with slow flow Ramus intermedius, has mild diffuse ectasia with slow flow due to small vessel disease Right Coronory Artery is dominant artery with diffuse ectasia and slow flow CONCLUSION: 1. Diffuse coronary ectasia with slow flow in the carotid system, nonobstructive disease 2. Mildly elevated left ventricular end-diastolic pressure DISCUSSION AND RECOMMENDATION: abnormal stress test is probably due to small vessel disease, medical therapy is recommended. I will restart Eliquis. Planning to proceed with loop recorder implantation to rule out any malignant arrhythmia and monitor his atrial fibrillation Anesthesia Type: Conscious Sedation Estimated blood loss (mL): 15 ml Contrast Amount: 39 ml Total Radiation Dose: 604 mGy Post-Procedure Diagnosis Post-operative diagnosis: Coronary artery disease Congestive heart failure, chronic compensated left ventricular systolic dysfunction, nonischemic cardiomyopathy Paroxysmal atrial fibrillation Syncope (1) Seizures (2) Elevated troponin I level (3) Pulmonary vascular congestion BASHIR MEDINA MD Feb 03, 2019 08:49
[2019-02-03] MEDS ORDERED: NON-FORMULARY MEDICATION 1 EA EA (Aspirin (Aspir 81) 81 MG) PO SCH (09:00)
[2019-02-03] MEDS ORDERED: FERROUS SULF 325 MG (IRON) TAB PO SCH (09:00)
--- NOTE | 2019-02-03 09:10 | Implantation of Loop Monitor ---
Implant of Loop Monitior IMPLANTATION OF LOOP MONITOR REPORT DATE OF PROCEDURE: 02/03/19 PREOP DIAGNOSIS: Chronic atrial fibrillation Syncope Congestive heart failure POSTOP DIAGNOSIS: chronic atrial fibrillation Syncope Congestive heart failure PROCEDURE DETAILS: The patient is a 58 male with history of paroxysmal atrial fibrillation, had mu ltiple syncopal episode with severe cardiomyopathy, high risk for malignant arrhythmia requiring long-term surveillance. Therefore implantable loop recorder was discussed and agreed with the patient. Informed consent was taken. All risks and complications were discussed at length. The patient was draped and prepped in the usual sterile fashion. Local anesthesia was lidocaine, which was given in the substernal area close to the 4th intercostal space. Loop monitor [employer] with serial number [id number] was implanted according to the protocol. Steri- Strips were placed at the end of the procedure. There were no complications and the patient tolerated the procedure well. The device was interrogated with a voltage of. ANESTHESIA: Local anesthesia with lidocaine. COMPLICATIONS: None CONTRAST/FLUOROSCOPY: None CONCLUSION: 1. Successful implantation with loop recorder with no complication BASHIR MEDINA MD Feb 03, 2019 09:10
--- NOTE | 2019-02-03 09:45 | NUR ---
PT BACK TO [facility] VIA BED W/ POULTRY RAISER STAFF.
[2019-02-03] MEDS ORDERED: morphine INJ 10 MG/ML 1ML (SYR OR VIAL) ONE (11:23)
[2019-02-03 12:00] VITALS: BP 141/96
--- NOTE | 2019-02-03 16:54 | NUR ---
MELODY LAMB demonstrates understanding of discharge instructions and accurately returns instructions upon questioning. Copy of Post-Discharge Instructions and Medication Discharge Instructions given to PT. MELODY LAMB is able to manage continuing needs after discharge. Patients belongings returned to PT. Skin dry and intact; no breakdown noted. Patient discharged from [facility]- on 02/03/19 at 1654. MELODY LAMB left floor via WC, accompanied by STAFF/FAMILY.
--- NOTE | 2019-02-03 18:07 | Discharge Summary ---
Diagnosis/Chief Complaint Date of Admission Feb 01, 2019 at 23:31 Date of Discharge Feb 03, 2019 at 16:54 Admission Diagnosis Admission Diagnosis Elevated Troponin Ischemic Cardiomyopathy V Tach Acute on Chronic Systolic CHF h/o CVA NIDDM Seizure D/o Discharge Diagnosis See Above Discharge Summary-Simple/Stand Procedures Cath 02/03/[address] Pizarro: Cardiology Discharge Physical Examination Allergies: Coded Allergies: No Known Drug Allergies (Unverified , 01/16/17) Vitals & I&Os Vital Sign - Last 12Hours Date Time Temp Pulse Resp B/P (MAP) Pulse Ox O2 Delivery O2 Flow Rate FiO2 02/03/19 16:54 02/03/19 16:00 97.4 02/03/19 15:28 93 Room Air 02/03/19 13:00 67 02/03/19 12:00 14 02/03/19 11:05 3.00 Intake and Output 02/03/19 00:00 Intake Total 755 ml Output Total 3425 ml Balance -2670 ml General Appearance: Alert, Oriented X3, Cooperative, No Acute Distress Respiratory: Clear to Auscultation, Normal Air Movement Cardiovascular: Regular Rate, No Murmurs Abdominal: Normal Bowel Sounds, Soft, No Tenderness, No Masses Extremities: No Edema, No Tenderness/Swelling Skin: No Rashes Neuro: Strength at 5/5 X4 Ext, Cranial Nerves 3-12 NL Psych/Mental Status: Mental Status NL, Mood NL Hospital Course Was the Problem List Reviewed?: Yes See final discharge diagnosis. Discussion & Recommendations 58 yo M that presented with concerning about seizure disorder vs arrhythmia. After episode yesterday patient did not have any post ictal state. Cardiology was consulted and tele picked up a couple of episodes of V-tach. Troponins trended down. Patient improved with diuresis and was taken to cath with no intervention. Patient had loop recorder placed and will follow with Cardiology. Discharge Condition at discharge stable Instructions to patient/family Please see electronic discharge instructions given to patient. Discharge Medications Reviewed and agree with Discharge Medication list on patient's Discharge Instruction sheet Clinical Quality Measures DVT/VTE Risk/Contraindication: Risk Factor Score Per Nursin RFS Level Per Nursing on Admit: 4+=Very High Copy Copies To 1: Kristen CLEMENTS APRN GAULT, HOLLY R MD Feb 03, 2019 18:07
[2019-02-03] MEDS ORDERED: ATORVASTATIN 20 MG (LIPITOR) TABLET PO SCH (21:00)
[2019-02-03] MEDS ORDERED: APIXABAN 5 MG (ELIQUIS) TABLET PO SCH (21:00)
== END 2019-02-03 16:54 | disposition home or self-care (01) ==
LOC: EDUNIT# 21:51 → ER 21:52 → ICU 23:31
PROVIDERS: ADMIT Internal Medicine; ATTEND Internal Medicine
DX: I13.0 Hypertensive heart and chronic kidney disease with heart failure and stage 1 through stage 4 chronic kidney disease, or unspecified chronic kidney disease (principal); I50.22 Chronic systolic (congestive) heart failure; G40.909 Epilepsy, unspecified, not intractable, without status epilepticus; I47.2 Ventricular tachycardia; R55 Syncope and collapse; I48.0 Paroxysmal atrial fibrillation; I25.10 Atherosclerotic heart disease of native coronary artery without angina pectoris; I25.5 Ischemic cardiomyopathy; N18.3 Chronic kidney disease, stage 3 (moderate); E11.22 Type 2 diabetes mellitus with diabetic chronic kidney disease; E78.5 Hyperlipidemia, unspecified; K21.9 Gastro-esophageal reflux disease without esophagitis; F32.9 Major depressive disorder, single episode, unspecified; I69.351 Hemiplegia and hemiparesis following cerebral infarction affecting right dominant side; R79.89 Other specified abnormal findings of blood chemistry; Z79.82 Long term (current) use of aspirin; Z79.899 Other long term (current) drug therapy; Z87.891 Personal history of nicotine dependence
CPT/HCPCS: 33285; 36415; 36600; 71045; 80053; 81000; 82805; 83605; 83735; 83880; 84484; 85007; 85027; 85610; 85730; 86141; 87040; 93005; 93041; 93306; 93458; 96361; 96374; 99291

== ENCOUNTER 2019-02-14 14:19 | Emergency (ER) | payer MEDICAID ==
[~2019-02-14] VITALS: Ht 182.9 cm; Wt 99.8 kg
[2019-02-14] MEDS ORDERED: EPINEPHrine 0.1 MG/ML 10 ML (HOSPIRA) SYR INJ ONE (14:22)
--- NOTE | 2019-02-14 14:26 | NUR ---
1426- SEE TRIAGE NOTE 1428 - NO PULSE NOTED. CPR STARTED. PT INC OF URINE 1429- OXY MASK TAKEN OFF ET RT BAGGING AT THIS TIME. 1431-ATTEMPT FOR IV BY [facility]. 1433 I/O STARTED BY FRANCISCO. EPI 1MG IO GIVEN. COMPRESSIONS STOPPED. PULSE CHECK ASYSTOLE ET COMPRESSIONS RESUMED. 1438 COMPRESSIONS STOPPED ET PULSE CHECK ASYSTOLE. COMPRESSIONS RESUMED. EPI 1MG GIVEN IO. 1439- PREPARING FOR INTUBATION. 1441- EPI 1MG IO GIVEN. 1442- COMPRESSIONS STOPPED. PULSE CHECK OF ASYSTOLE. COMPRESSIONS RESUMED. 1444 COMPRESSIONS STOPPED . PULSE CHECK OF ASYSTOLE. COMPRESSIONS RESUMED. 1445 COMPRESSIONS STOPPED FOR ATTEMPT OF TUBE PLACEMENT THEN COMPRESSIONS RESUMED. 1447 EPI 1MG IO GIVEN. Addendum: 02/14/19 at 1506 by ADALI 1444 EPI 1MG IO GIVEN.
[2019-02-14] MEDS ORDERED: EPINEPHrine INJECTION 1 MG/ML AMP ONE (14:48)
[2019-02-14 14:56] VITALS: BP 0/0
--- NOTE | 2019-02-14 15:01 | NUR ---
Note undone in [facility] - 02/14/19 at 1510 by ADALI 1448- IN ROOM WITH FAMILY AT THIS TIME. 1450 - EPI 1MG IO GIVEN. 1453-COMPRESSIONS STOPPED ET PULSE CHECK OF ASYSTOLE ET COMPRESSIONS RESTARTED. 1455 - EPI 1MMG IO GIVEN (OUT OF [facility]) GIRLFRIEND BROUGHT TO ROOM PER HER REQUEST. 1456 COMPRESSIONS STOPPED. PULSE CHECK OF ASYSTOLE. TALKING WITH GIRLFRIEND. TIME OF CALLED. Addendum: 02/14/19 at 1509 by ADALI Amendment undone in [facility] - 02/14/19 at 1510 by DEEPIKADER 1450- EPI 1MG IO GIVEN.
--- NOTE | 2019-02-14 15:20 | NUR ---
GIRLFRIEND AND DAUGHTERS TAKEN TO FAMILY ROOM BY YENIFER FROM [facility] SO I COULD CARE FOR THE BODY AND PREPARE FOR [facility].
--- NOTE | 2019-02-14 15:25 | NUR ---
ICE PLACED ON EYES BILAT.
--- NOTE | 2019-02-14 15:35 | ED CPR ---
HPI-CPR General Chief Complaint: Code Blue Stated Complaint: POSSIBLE HEART ATTACK Nursing Triage Note: CALLED TO PARKING LOT FOR UNRESPONSIVE PT. FAMILY STATES HE STARTED A NEW SEIZURE MEDICATION OF DILANTIN THIS AM THEN WANTED TO GO FOR A RIDE. FAMILY STATES HE STARTED ACTING FUNNY IN THE CAR THEN BECAME UNRESPONSIVE. UPON BEING PUT ON THE BED IN ER PT WAS UNRESPONSIVE WITH A FAINT ELVIS PULSE. OXY MASK PLACED. DR BROUGHT IN ROOM. Sepsis Screen: No Definite Risk Source of Information: Family, Old Records Exam Limitations: Physical Impairments History of Present Illness Date Seen by Provider: Feb 14, 2019 Time Seen by Provider: 14:26 Initial Comments This 58-year-old gentleman was brought to the emergency room by private vehicle. He was out for a drive with his significant other when he suddenly became unresponsive. She drove to the ER and requested help getting him out of the vehicle. Staff found him to be unresponsive with a faint bradycardic pulse. A bed was rolled out to the vehicle and patient was brought to the exam room. Upon arrival to the exam room he was again found to have a faint bradycardic pulse which was quickly lost. CPR was initiated. Patient was found to be in asystole on the monitor. Patient has history of seizure disorder and recently started new medication. No seizure activity was reported by his significant other. Patient was noted to be incontinent of urine. He had no muscle tone and was completely unresponsive. Pupils were fixed and dilated. Recent health history includes cardiac catheterization on February 03 showing diffuse ectasia with slow flow but no obstructive disease. An echocardiogram demonstrated ejection fraction of 35-40 percent with valvular disease and systolic dysfunction. Patient has history of paroxysmal atrial fibrillation and was recently restarted on Eliquis. Significant other reports patient was acting normally until he suddenly became unresponsive in the car. Patient has had a loop recorder recently placed. Initial Complaints: Found Unresponsive Allergies and Home Medications Allergies Coded Allergies: No Known Drug Allergies (Unverified , 01/16/17) Home Medications Acetaminophen 325 Mg Tablet, 650 MG PO Q4H PRN for PAIN-MILD, (Reported) TAKES 2 (325MG) TABLETS Apixaban 5 Mg Tablet, 5 MG PO BID, (Reported) Aspirin 81 Mg Tablet., 81 MG PO DAILY, (Reported) Atorvastatin Calcium 20 Mg Tablet, 20 MG PO DAILY, (Reported) Carvedilol 25 Mg Tablet, 25 MG PO BID, (Reported) Diltiazem HCl 120 Mg Tablet, 120 MG PO BID, (Reported) Ergocalciferol (Vitamin D2) 50,000 Unit Capsule, 50,000 UNIT PO WEEK, (Reported) Ferrous Sulfate 325 Mg Tablet, 650 MG PO DAILY, (Reported) Fluoxetine HCl 40 Mg Capsule, 40 MG PO DAILY, (Reported) Levetiracetam 1,000 Mg Tablet, 1,000 MG PO BID, (Reported) Levetiracetam 500 Mg Tablet, 500 MG PO BID, (Reported) Multivitamin with Minerals 1 Each Tablet, 1 TAB PO DAILY, (Reported) Polyethylene Glycol 3350 255 Gm Powder, 17 GM PO DAILY PRN for CONSTIPATION-2ND LINE, (Reported) Potassium Chloride 10 Meq Tab.er.prt, 10 MEQ PO DAILY, (Reported) Sitagliptin Phosphate 100 Mg Tablet, 100 MG PO DAILY, (Reported) Patient Home Medication List Home Medication List Reviewed: Yes Review of Systems Review of Systems Constitutional: see HPI EENTM: See HPI Respiratory: See HPI Cardiovascular: See HPI Gastrointestinal: No Symptoms Reported Genitourinary: See HPI Musculoskeletal: see HPI Skin: no symptoms reported Psychiatric/Neurological: See HPI Endocrine: No Symptoms Reported Hematologic/Lymphatic: No Symptoms Reported Past Lbhmbxf-Zvrzhb-Qmzvjr Hx Past Med/Social Hx: Reviewed and Corrections made Patient Social History Drug of Choice: MJ Type Used: Cigarettes Former Smoker, Quit: January 16, 2017 2nd Hand Smoke Exposure: Yes Recent Foreign Travel: No Contact w/Someone Who Travel: No Recent Infectious Disease Expo: No Recent Hopitalizations: No Immunizations Up To Date Tetanus Booster (TDap): Unknown Date of Pneumonia Vaccine: May 09, 2017 Date of Influenza Vaccine: May 09, 2017 Seasonal Allergies Seasonal Allergies: No Past Medical History Surgeries: Yes (lower back bone biopsy, neg heart cath) Cardiac (loop recorder placement, cardiac catheterization) Respiratory: No Currently Using CPAP: No Currently Using BIPAP: No Cardiac: Yes Atrial Fibrillation, Cardiomyopathy, Coronary Artery Disease, High Cholesterol, Hypertension Neurological: Yes Stroke Sexually Transmitted Disease: No HIV/AIDS: No Genitourinary: Yes Renal Failure Gastrointestinal: Yes (dysphasia) Gastroesophageal Reflux Musculoskeletal: Yes (right-sided weakness -CVA) Endocrine: Yes Diabetes, Insulin dep, Diabetes, Non-Insulin dep HEENT: No Cancer: Yes Melanoma Did You Recieve Any Treatments: No Psychosocial: Yes Depression Integumentary: No Blood Disorders: No Adverse Reaction/Blood Tranf: No Family Medical History No Pertinent Family Hx Physical Exam Vital Signs Vital Signs - First Documented 02/14/19 02/14/19 14:26 14:56 Pulse 25 Resp 0 B/P (MAP) 0/0 (0) Pulse Ox 0 O2 Delivery OxyMask Capillary Refill : NONE Height, Weight, BMI Height: 6'11.00" Weight: 220lbs. 6.4oz. 99.074838ky; 33.5 BMI Method:Estimated General Appearance: WD/WN, Other (unresponsive) HEENT: Other (pupils fixed and dilated) Neck: Normal Inspection; No JVD Respiratory: Lungs Clear (with BVM) Cardiovascular: Other (asystole) Gastrointestinal: Soft; No Distended Extremity: Normal Inspection, No Pedal Edema Neurologic/Psychiatric: Other (unresponsive with no muscle tone, no respiratory effort, and unresponsive pupils) Skin: Normal Color, Warm/Dry Progress/Results/Core Measures Results/Orders Lab Results Laboratory Tests Test 02/14/19 14:35 Range/Units Glucometer 153 H 70-110 MG/DL My Orders Orders - BRENNEN MORALES MD Epinephrine 1 Mg Injection (Adrenalin I (02/14/19 14:48) Epinephrine Emergency Syringe (Epinephr (02/14/19 14:22) Epinephrine 1 Mg Injection (Adrenalin I (02/14/19 16:45) Medications Given in ED Vital Signs/I&O 02/14/19 02/14/19 02/14/19 14:26 14:26 14:56 Pulse 25 0 Resp 0 B/P (MAP) 0/0 (0) Pulse Ox 0 O2 Delivery OxyMask FSBG Bedside Testing Finger Stick Blood Glucose: 153 Critical Care Note Critical Care Start Time: 14:26 Stop Time: 14:56 Total Time (minutes) 30 Date of : Feb 14, 2019 Time of : 14:56 Progress CPR was immediately started on this patient. Patient received ventilation by BVM. IV attempts were unsuccessful and an IO line was placed in the right tibia at 14:33. Doses of epinephrine 1 mg by IO were administered at 14:33, 14:38, 14:41, 14:44, 14:47, 14:50, and 14:55. Patient had no response to doses of epinephrine. Blood sugar was 153. Numerous pulse checks occurred during the resuscitation effort and always yielded no pulse and asystole on the monitor. Patient was continuously hypoxic despite ease of bagging with BVM. Intubation was attempted. There was a significant amount of clear secretion in the airway. This was suctioned out. Intubation was first attempted by this provider with a Mac laryngoscope. Vocal cords could not be visualized. A Gilliam laryngoscope was then used. Vocal cords were difficult to visualize. ET tube was placed but placement was not confirmed by auscultation or color change Tomography. ET tube was removed. A third attempt was made by respiratory therapy and was also unsuccessful due to deep anterior vocal cords and poor visualization. Ventilation continued with BVM. I discussed the situation with patient's significant other and his brother who was on the phone and participated in the discussion at 14:48. His significant other was invited to the room to be with the patient. She was present for the last dose of epinephrine and the last round of resuscitation. The team unanimously agreed that further resuscitation efforts were futile at that point. Resuscitation effort was ongoing for approximately 30 minutes, and he received a total of 7 doses of epinephrine without any response. Time of was called at 14:56. Loop recorder was interrogated. There were several abnormalities noted. Early on patient had some bradycardia and problems with atrial conduction. Patient then had a run of ventricular tachycardia. He again then developed bradycardia and loss of conduction. It is unclear if arrhythmia started prior to the unresponsive episode or as a result of it. Departure Impression Primary Impression: Cardiopulmonary arrest Additional Impressions: Cardiomyopathy Qualified Codes: I42.9 - Cardiomyopathy, unspecified Ventricular tachycardia Asystole Disposition: 20 Condition: Departure-Patient Inst. Referrals: [facility] (PCP/Family) Primary Care Physician Copy Copies To 1: BASHIR MEDINA MD Copies To 2: VINCE ANDRES JOSHUA T MD Feb 14, 2019 15:35
--- NOTE | 2019-02-14 15:45 | NUR ---
SHOES, BELT, AND SOCKS PLACED IN BAG ET GIVEN TO YENIFER FROM [facility] TO GIVE TO FAMILY. NOTIFIED THAT PANTS AND SHIRTS HAD BEEN CUT ET NO PERSONAL BELONGINGS IN THEM.
--- NOTE | 2019-02-14 15:50 | NUR ---
BODY TAKEN TO 512 DUE TO BUSY ER. FAMILY AWARE. REPORT GIVEN TO [employer] [employer] MANAGER.
[2019-02-14] MEDS ORDERED: EPINEPHrine INJECTION 1 MG/ML AMP IV ONE (16:45)
--- NOTE | 2019-02-14 21:00 | NUR ---
Body released to [facility] at this time. Per [facility] staff, will hold body over night for [facility] in [place], [place].
== END 2019-02-14 15:45 | disposition expired ==
LOC: EDUNIT# 14:19 → ER 14:21
DX: I46.9 Cardiac arrest, cause unspecified (principal); I42.9 Cardiomyopathy, unspecified; I47.2 Ventricular tachycardia; G40.909 Epilepsy, unspecified, not intractable, without status epilepticus; I48.0 Paroxysmal atrial fibrillation; I25.10 Atherosclerotic heart disease of native coronary artery without angina pectoris; E78.00 Pure hypercholesterolemia, unspecified; I10 Essential (primary) hypertension; K21.9 Gastro-esophageal reflux disease without esophagitis; E11.9 Type 2 diabetes mellitus without complications; F32.9 Major depressive disorder, single episode, unspecified; Z85.820 Personal history of malignant melanoma of skin; Z87.19 Personal history of other diseases of the digestive system; Z86.73 Personal history of transient ischemic attack (TIA), and cerebral infarction without residual deficits; Z79.01 Long term (current) use of anticoagulants; Z79.82 Long term (current) use of aspirin; Z87.891 Personal history of nicotine dependence; Z98.890 Other specified postprocedural states; Z95.9 Presence of cardiac and vascular implant and graft, unspecified
CPT/HCPCS: 36680; 51702; 82962